=== PATIENT | female | born 1950 | race Caucasian/White ===

== ENCOUNTER 2016-11-04 07:16 | Day surgery (SDC) | payer BC, OTHER ==
[2016-11-03 08:46] VITALS: BMI 42.3
[~2016-11-04 07:16] MED LIST: DEXAMETHASONE SOD PHOSPHATE 10 MG/ML 1 ML VIAL IV ONE; HEPARIN SODIUM,PORCINE 5,000 UNIT/ML 1 ML VIAL SQ ONE; LIDOCAINE 1% 20 ML VIAL (10MG/ML) FOR IV START INTRADERMA PRN; MIDAZOLAM 2 MG/2 ML VIAL IV PRN; ONDANSETRON 4 MG/2 ML VIAL IVP ONE; SCOPOLAMINE 1.5MG/72HR PATCH TRANSDERM ONE
[2016-11-04] MEDS ORDERED: HEPARIN SODIUM,PORCINE 5,000 UNIT/ML 1 ML VIAL SQ ONE (08:11)
[2016-11-04] MEDS: LACTATED RINGERS 1,000 ML IV ONE ×2 (08:41→09:01)
[2016-11-04] MEDS ORDERED: LIDOCAINE 1% 20 ML VIAL (10MG/ML) FOR IV START INTRADERMA ONE (08:42)
[2016-11-04] MEDS: VANCOMYCIN 1,750 MG in SODIUM CHLORIDE 0.9% 250 ML IVPB ONE ×2 (08:43→09:01)
[2016-11-04 08:57] LABS: Glucose,Whole Blood 107 mg/dL (75-99)
[2016-11-04] MEDS ORDERED: MIDAZOLAM 2 MG/2 ML VIAL ONE (09:04)
[2016-11-04] MEDS ORDERED: LABETALOL 5 MG/ML VIAL MDV ONE (09:04)
[2016-11-04] MEDS ORDERED: HYDROCORTISONE SUCCINATE 100 MG/2 ML VIAL ONE (09:04)
[2016-11-04] MEDS ORDERED: fentaNYL (PF) 50 MCG/ML 2 ML AMP ONE (09:04)
[2016-11-04] MEDS ORDERED: LIDOCAINE 1% INJ 10MG/ML (20 ML MDV) ONE (09:04)
[2016-11-04] MEDS ORDERED: NEOSTIGMINE 1 MG/ML 10 ML VIAL ONE (09:04)
[2016-11-04] MEDS ORDERED: SUCCINYLCHOLINE CHLORIDE 100 MG/5 ML SYR IV ONE (09:04)
[2016-11-04] MEDS ORDERED: PROPOFOL 10 MG/ML 20 ML VIAL IV ONE (09:04)
[2016-11-04] MEDS ORDERED: GLYCOPYRROLATE 0.2 MG/ML 2 ML VIAL ONE (09:04)
[2016-11-04] MEDS ORDERED: ROCURONIUM BROMIDE 10 MG/ML 10 ML VIAL IV ONE (09:04)
[2016-11-04 10:49] VITALS: TEMP 98.6
--- NOTE | 2016-11-04 10:55 | P.OP ---
Date of Procedure: 11/04/16 Postoperative Diagnosis: Same Procedure(s) Performed: Revision tissue right chest wall Anesthesia: CLIVE Surgeon: Heather Ramos Estimated Blood Loss (ml): 30 IV fluids (ml): 500 Pathology: other (Residual skin and subcutaneous tissue right chest wall) Condition: stable Disposition: PACU Indications for Procedure: Patient is status post skin sparing mastectomy of the right breast for breast carcinoma she subsequently developed an MRSA infection and have the implant removed. The patient has now had resolution of the infection does not wish to have reconstruction performed. She therefore wishes revision of the skin and subcutaneous tissue of the chest wall. Description of Procedure: Redundant skin tissue secondary to skin sparing mastectomy Patient developed infection, patient then chose not to have a repeat reconstruction and therefore revision of tissue chest wall is being done. Patient was taken to the operating room and following induction of general anesthesia the right chest was prepped and draped in a sterile fashion. An incision was made in the superior and inferior flap of the prior skin sparing mastectomy. The residual subcutaneous tissue was dissected free and the flaps were developed. Because this was developed superiorly and inferiorly. The residual subcutaneous tissue and skin were removed from the chest wall using electrocautery device as well as the LigaSure. After assured that hemostasis was attained the wound was well irrigated. Following this a Stew-Tariq drain was placed. The deep tissues were secured using a 3-0 Vicryl suture. The skin was closed using 4-0 Monocryl. Additionally Baltazar were placed in the skin. The reason for the baltazar were that if the patient should develop an infection so this could be intermittently removed without opening the entire incision. The incision length was approximately 27 cm. In the midportion of the incision was a cavity approximately 3 x 4 cm in size, this represented the area where the patient had experienced an MRSA infection. This patient was entirely removed with the specimen. Patient tolerated procedure in stable condition. All instrument and sponge counts were correct at the end of the case. A silver dressing was applied. The patient was wrapped using a Joy wrap.
--- NOTE | 2016-11-04 10:57 | P.DS ---
Providers Attending physician: Heather Ramos Primary care physician: Kari Del Castillo Plan - Discharge Summary New Discharge Prescriptions: HYDROcodone/APAP 5-325MG [[place] 5] 1 - 2 each PO Q4H PRN #20 tab PRN Reason: Pain Sulfamethox-Tmp 800-160Mg [Bactrim DS 800-160 mg] 1 tab PO Q12HR #14 tab Discharge Medication List Desvenlafaxine Succinate [Pristiq ER] 50 mg PO HS 03/06/16 [History] Ergocalciferol (Vitamin D2) [Vitamin D2] 50,000 unit PO MO 03/06/16 [History] Leflunomide [Arava] 20 mg PO HS 03/06/16 [History] Levothyroxine Sodium 100 mcg PO QAM 03/06/16 [History] Nebivolol HCl [Bystolic] 10 mg PO QAM 03/06/16 [History] Omeprazole [PriLOSEC] 20 mg PO HS 03/06/16 [History] Zolpidem [Ambien] 10 mg PO HS 03/06/16 [History] amLODIPine [Norvasc] 10 mg PO QAM 03/06/16 [History] Losartan [Cozaar] 25 mg PO DAILY 03/26/16 [History] Exemestane [Aromasin] 25 mg PO HS 05/25/16 [History] HYDROcodone/APAP 7.5-325MG [[place] 7.5-325] 1 tab PO Q4H PRN #30 tab 05/29/16 [Rx ] ALPRAZolam [Xanax] 0.5 mg PO DAILY PRN 11/03/16 [History] methylPREDNISolone Dose Pack [Medrol Dose Pack] 1 tab PO DIRECTED 11/03/16 [ History] HYDROcodone/APAP 5-325MG [[place] 5] 1 - 2 each PO Q4H PRN #20 tab 11/04/16 [Rx] Sulfamethox-Tmp 800-160Mg [Bactrim DS 800-160 mg] 1 tab PO Q12HR #14 tab [Rx] Follow up Appointment(s)/Referral(s): Heather Ramos MD [STAFF PHYSICIAN] - 3 Days Activity/Diet/Wound Care/Special Instructions: Luis M Hamilton wrap in place at all times Teaching patient's family drain care Do not drive until seen by Dr. Srivastava Discharge Disposition: HOME SELF-CARE
[2016-11-04] MEDS: HYDROmorphone 1 MG/ML 1 ML SYRINGE IVP PRN ×2 (11:01→11:11)
[2016-11-04 11:16] VITALS: RESP 16
[2016-11-04] MEDS ORDERED: LACTATED RINGERS 1,000 ML IV ONE (11:23)
[2016-11-04] MEDS ORDERED: HYDROcodone/APAP 5-325MG 1 EACH TAB PO ONE (12:02)
[2016-11-04 12:21] VITALS: BP 150/75; PULSE 69
== END 2016-11-04 12:36 | disposition home or self-care (01) ==
LOC: OR 07:16
PROVIDERS: ATTEND Surgery
DX: L98.7 Excessive and redundant skin and subcutaneous tissue (principal); Z90.11 Acquired absence of right breast and nipple; Z86.14 Personal history of Methicillin resistant Staphylococcus aureus infection; Z85.3 Personal history of malignant neoplasm of breast; N60.11 Diffuse cystic mastopathy of right breast; N64.1 Fat necrosis of breast; N60.81 Other benign mammary dysplasias of right breast; N60.21 Fibroadenosis of right breast; N60.91 Unspecified benign mammary dysplasia of right breast; G47.33 Obstructive sleep apnea (adult) (pediatric); I10 Essential (primary) hypertension; I38 Endocarditis, valve unspecified; I48.91 Unspecified atrial fibrillation; E03.9 Hypothyroidism, unspecified; E21.3 Hyperparathyroidism, unspecified; K21.9 Gastro-esophageal reflux disease without esophagitis; M06.9 Rheumatoid arthritis, unspecified; Z79.1 Long term (current) use of non-steroidal anti-inflammatories (NSAID); Z79.891 Long term (current) use of opiate analgesic; Z79.899 Other long term (current) drug therapy; Z88.8 Allergy status to other drugs, medicaments and biological substances
CPT/HCPCS: 88305; 15839; J2250; J3370; J1644; J1100; J2710; J1720; J2405; J2001; J3010; J1170; J0330; J2704

== ENCOUNTER → 2017-02-23 | Outpatient (CLI) | payer BC ==
--- NOTE | 2017-02-23 15:56 | BD ---
EXAMINATION TYPE: MG DEXA axial skeleton, MG DEXA appendicular skeleton. DATE OF EXAM: 02/23/2017 3:41 PM COMPARISON: 09.04.2003 CLINICAL HISTORY: E21.0 HYPERPARATHYROIDISM Height: 65 Weight: 280 FRAX RISK QUESTIONS: Alcohol (3 or more units per day): NO Family History (Parent hip fracture): NO Glucocorticoids (More than 3mos): YES (Ex: prednisone, prednisolone, methylprednisolone, dexamethasone, and hydrocortisone). History of Fracture in Adulthood: NO Secondary Osteoporosis: NO 1. Type 1 Diabetes: NO 2. Hyperthyroidism: NO 3. Menopause before 45: NO 4. Malnutrition: NO 5. Chronic liver disease: NO Rheumatoid Arthritis: YES Current Tobacco Use: NO RISK FACTORS HISTORY OF: Surgery to Spine...HERNIATED DISC AND SHAVING OF BONE SPURS..TO LUMBAR SPINE When: 2010 Family History of Osteoporosis: NONE KNOWN Smoke tobacco: NO Drink Alcohol: NO Active: NO Diet low in dairy products/other sources of calcium: NO Postmenopausal woman: AT ABOUT 52 Adrenal Insufficiency: NO MEDICATIONS: Prednisone or other steroids: PREDNISONE How Lon MOS Thyroid Medications: YES Which medication: SYNTHROID How Lon + YRS Additional Medications: VIT D AND CALCIUM, BP MEDS, ARMIDEX, PRYSTIC, DIABETIC MEDS, ARAVA, ACTEMRA Additional History: DIABETIC, RT BREAST CANCER, WITH MASTECTOMY, HYPERPARATHYROIDISM, RA EXAM MEASUREMENTS: Bone mineral densitometry was performed using the [employer] T[employer]ycle System. Bone mineral density as measured about the Lumbar spine is: NO SPINE SCANNED....HX OF SURGICAL PROCEDURE 2010....BONE SPURS SHAVED AND HERNIATED DISCS REPAIRED. .. Bone mineral density about the R hip (g/cm2): 1.066 Bone mineral density about the L hip (g/cm2): 1.085 T Score values are as follows: -----R Neck: -0.4 -----L Neck: -0.4 -----R Total: 0.5 -----L Total: 0.6 Bone mineral density has: Decreased -4.4% since study of: 09.04.2003 Bone mineral density about the L Wrist (g/cm2): 0.538 T Score values are as follows: -----Dist. R+U: -1.4 -----Prox. R+U: -1.7 -----Radius total: -2.3 Bone mineral density IS FIRST SCAN OF HER FOREARM....ORDERED PER HER PHYSICIAN IMPRESSION: Osteopenia (T Score between -2.5 and -1 as noted by T score values There is slightly increased risk of fracture and the patient may be considered for treatment. Re-Screen 2-5 years. FOR HER LT WRIST NOTE: T-SCORE=SD OF THE YOUNG ADULT MEAN.
== END | disposition home or self-care (01) ==
LOC: RADBDWWP 13:52
PROVIDERS: ATTEND Internal Medicine Rheumatology
DX: M85.80 Other specified disorders of bone density and structure, unspecified site (principal); E21.0 Primary hyperparathyroidism
CPT/HCPCS: 77080; 77081

== ENCOUNTER → 2017-02-23 | Outpatient (CLI) | payer BC ==
--- NOTE | 2017-02-23 14:49 | MM ---
Reason for exam: history of breast cancer, mastectomy. Last mammogram was performed 1 year and 1 month ago. History: Patient is postmenopausal, has history of breast cancer at age 65, and has history of endometrial cancer at age 29. Mastectomy of the right breast, April 01, 2016. Malignant MG pre op needle loc RT of the right breast, March 11, 2016. Malignant MG stereo VAD BX RT of the right breast, February 26, 2016. Excisional biopsy of the right breast, 2000. Benign cyst aspiration of both breasts. Took estrogen for 1 year 2 months. Took progesterone for 1 year 2 months. Physical Findings: Nurse did not find any significant physical abnormalities on exam. MG 3D Diag Mammo W/Cad LT CC and MLO view(s) were taken of the left breast. Prior study comparison: February 04, 2016, right breast MG 3d work up w/cad RT. January 29, 2016, bilateral MG 3d screening mammo w/cad. The breast tissue is heterogeneously dense. This may lower the sensitivity of mammography. Benign calcifications. There is no discrete abnormality. No significant new findings when compared with previous films. These results were verbally communicated with the patient and result sheet given to the patient on 02/23/17. ASSESSMENT: Benign, BI-RAD 2 RECOMMENDATION: Follow-up diagnostic mammogram of the left breast in 1 year.
== END | disposition home or self-care (01) ==
LOC: RADMAMWWP 13:48
PROVIDERS: ATTEND Internal Medicine Rheumatology
DX: R92.8 Other abnormal and inconclusive findings on diagnostic imaging of breast (principal)
CPT/HCPCS: G0206; G0279

== ENCOUNTER → 2017-04-01 | Outpatient (CLI) | payer BC ==
[2017-04-01 15:50] VITALS: PULSE 67; RESP 16; TEMP 98.4; BMI 45.2
[2017-04-01 16:23] VITALS: BP 179/79
[2017-04-01 17:00] LABS: EKG EKG PERFORMED
[2017-04-01 17:14] LABS: CH 30.8; CHCM 31.9; HCT 47.6 % (34.0-46.0); HDW 2.28; HGB 15.1 gm/dL (11.4-16.0); MCH 30.7 pg (25.0-35.0); MCHC 31.7 g/dL (31.0-37.0); Mean Platelet Volume 8.1; RBC 4.91 m/uL (3.80-5.40); RDW 15.5 % (11.5-15.5); WBC 6.9 k/uL (3.8-10.6)
[2017-04-01 17:30] LABS: ALT 65 U/L (9-52); AST 35 U/L (14-36); Alkaline Phosphatase 74 U/L (38-126); Anion Gap 10 mmol/L; Blood Urea Nitrogen 23 mg/dL (7-17); Calcium 10.6 mg/dL (8.4-10.2); Carbon Dioxide 28 mmol/L (22-30); Chloride 108 mmol/L (98-107); Cholesterol 212 mg/dL (<200); Glucose 91 mg/dL (74-99); HDL Cholesterol 51 mg/dL (40-60); Iron 133 ug/dL (37-170); Non-African American GFR(MDRD) >60 (>60 ml/min/1.73 sqM); Potassium 4.9 mmol/L (3.5-5.1); Sodium 146 mmol/L (137-145); Total Bilirubin 0.4 mg/dL (0.2-1.3); Total Protein 6.9 g/dL (6.3-8.2); Triglycerides 253 mg/dL (<150)
[2017-04-01 17:40] LABS: Total Iron Binding Capacity 341 ug/dL (265-497)
[2017-04-01 18:34] LABS: Vitamin B12 329 pg/mL (239-931)
[2017-04-01 20:40] LABS: Hemoglobin A1C 6.7 % (4.2-6.1)
== END | disposition home or self-care (01) ==
LOC: BARWHC3 14:05
PROVIDERS: ATTEND Surgery Plastic and Reconstructive Surgery
DX: Z01.818 Encounter for other preprocedural examination (principal); E66.01 Morbid (severe) obesity due to excess calories; Z68.42 Body mass index [BMI] 45.0-49.9, adult; E89.1 Postprocedural hypoinsulinemia; D50.9 Iron deficiency anemia, unspecified; E44.0 Moderate protein-calorie malnutrition; E55.9 Vitamin D deficiency, unspecified; Z68.41 Body mass index [BMI] 40.0-44.9, adult; E11.9 Type 2 diabetes mellitus without complications; I11.9 Hypertensive heart disease without heart failure; G47.30 Sleep apnea, unspecified
CPT/HCPCS: 36415; 80053; 80061; 82306; 82607; 82728; 82746; 83036; 83540; 83550; 84425; 84443; 85027; 93005; 99201

== ENCOUNTER 2017-04-29 06:57 | Day surgery (SDC) | payer BC ==
[2017-04-28 08:28] VITALS: BMI 44.6
[~2017-04-29 06:57] MED LIST changes: -DEXAMETHASONE SOD PHOSPHATE 10 MG/ML 1 ML VIAL IV ONE; -HEPARIN SODIUM,PORCINE 5,000 UNIT/ML 1 ML VIAL SQ ONE; +LACTATED RINGERS 1,000 ML IV SCH; -LIDOCAINE 1% 20 ML VIAL (10MG/ML) FOR IV START INTRADERMA PRN; -MIDAZOLAM 2 MG/2 ML VIAL IV PRN; -ONDANSETRON 4 MG/2 ML VIAL IVP ONE; -SCOPOLAMINE 1.5MG/72HR PATCH TRANSDERM ONE
--- NOTE | 2017-04-29 07:33 | P.GSHP ---
History of Present Illness H&P Date: 04/29/17 CHIEF COMPLAINT: GERD and colon screen HISTORY OF PRESENT ILLNESS: The patient is a 66-year-old female who presents reports gastroesophageal reflux disease and need for colon screen. Upper and lower endoscopy were offered for further evaluation and management. PAST MEDICAL HISTORY: Please see list. PAST SURGICAL HISTORY: Please see list. MEDICATIONS: Please see list. ALLERGIES: Please see list. SOCIAL HISTORY: No illicit drug use FAMILY HISTORY: No reports of Crohn disease or ulcerative colitis. REVIEW OF ORGAN SYSTEMS: CONSTITUTIONAL: No reports of fevers or chills. GI: Denies any blood in stools or constipation. PHYSICAL EXAM: VITAL SIGNS: Stable GENERAL: Well-developed pleasant in no acute distress. HEENT: No scleral icterus. Extraocular movements grossly intact. Moist buccal mucosa. NECK: Supple without lymphadenopathy. CHEST: Unlabored respirations. Equal bilateral excursions. CARDIOVASCULAR: Regular rate and rhythm. Distal 2+ pulses. ABDOMEN: Soft, nondistended. MUSCULOSKELETAL: No clubbing, cyanosis, or edema. ASSESSMENT: 1. Gastroesophageal reflux disease 2. Colon screen. PLAN: 1. Recommend proceeding with an upper and lower endoscopy Past Medical History Past Medical History: Cancer, Diabetes Mellitus, GERD/Reflux, Hypertension, Rheumatoid Arthritis (RA), Sleep Apnea/CPAP/BIPAP, Thyroid Disorder Additional Past Medical History / Comment(s): HX OF ARRYTHMIA (led to ablation in 2004) , 1979; HX OF UTERINE/CERVICAL CA, January 2016: Rt. Breast Ca-March 2016- stage 0-MRSA, uses CPAP, DDD,steroid February 2017 History of Any Multi-Drug Resistant Organisms: MRSA Date of last positivie culture/infection: 05/26/16 MDRO Source:: breast right Past Surgical History: Back Surgery, Breast Surgery, Cardiac Ablation, Hysterectomy, Joint Replacement, Orthopedic Surgery Additional Past Surgical History / Comment(s): cardiac ablation 2004, RT KNEE REPLACEMENT X2, bilaterally BUNION SX, right breast lumpectomy February 2016, right breast mastectomy and sentinel node biopsy and tissue adobe layer March 2016.Tissue adobe layer removed 05/27/16, rt breast tissue removed Past Anesthesia/Blood Transfusion Reactions: Motion Sickness Additional Past Anesthesia/Blood Transfusion Reaction / Comment(s): no history of blood transfusions Smoking Status: Never smoker - Past Family History Mother Family Medical History: No Reported History Additional Family Medical History / Comment(s): at age 57 Father Family Medical History: Liver Disease Additional Family Medical History / Comment(s): cirrhosis, at age 58 Medications and Allergies Home Medications Medication Instructions Recorded Confirmed Type Desvenlafaxine Succinate [Pristiq 50 mg PO HS 03/06/16 04/28/17 History ER] Ergocalciferol (Vitamin D2) 50,000 unit PO MO 03/06/16 04/28/17 History [Vitamin D2] Leflunomide [Arava] 10 mg PO HS 03/06/16 04/28/17 History Levothyroxine Sodium 100 mcg PO QAM 03/06/16 04/28/17 History Nebivolol HCl [Bystolic] 10 mg PO QAM 03/06/16 04/28/17 History Omeprazole [PriLOSEC] 20 mg PO HS 03/06/16 04/28/17 History Zolpidem [Ambien] 10 mg PO HS 03/06/16 04/28/17 History amLODIPine [Norvasc] 10 mg PO QA 03/06/16 04/28/17 History Losartan [Cozaar] 25 mg PO QAM 03/26/16 04/28/17 History Exemestane [Aromasin] 25 mg PO HS 05/25/16 04/28/17 History ALPRAZolam [Xanax] 0.5 mg PO DAILY PRN 11/03/16 04/28/17 History Celecoxib [CeleBREX] 200 mg PO BID 04/01/17 04/28/17 History Cyclobenzaprine [Flexeril] 10 mg PO TID PRN 04/01/17 04/28/17 History metFORMIN HCL [Metformin HCl] 1,000 mg PO BID 04/01/17 04/28/17 History Tocilizumab [Actemra] 162 mg SQ TU 04/28/17 04/28/17 History Allergies Allergy/AdvReac Type Severity Reaction Status Date / Time povidone-iodine Allergy monahan skin Verified 04/28/17 08:13 [From Betadine] soap [From Betadine] Allergy monahan skin Verified 04/28/17 08:13
[2017-04-29 07:35] VITALS: RESP 14; TEMP 98.6
[2017-04-29 07:35] LABS: Glucose,Whole Blood 103 mg/dL (75-99)
[2017-04-29] MEDS ORDERED: MIDAZOLAM 2 MG/2 ML VIAL ONE (07:39)
[2017-04-29] MEDS ORDERED: fentaNYL (PF) 50 MCG/ML 2 ML AMP ONE (07:39)
[2017-04-29] MEDS ORDERED: PROPOFOL 10 MG/ML 20 ML VIAL IV ONE (07:39)
--- NOTE | 2017-04-29 07:53 | P.PCN ---
Date of Procedure: 04/29/17 Preoperative Diagnosis: Postoperative Diagnosis: Procedure(s) Performed: Implants: Indications for Procedure: Operative Findings: Description of Procedure: PREOPERATIVE DIAGNOSIS: Gastroesophageal reflux disease. Morbid obesity. POSTOPERATIVE DIAGNOSIS: Morbid obesity. Gastritis. Gastroesophageal reflux disease. OPERATION: Esophagogastroduodenoscopy with biopsies along antrum. SURGEON: Myriam Sánchez MD ANESTHESIA: MAC. INDICATIONS: The patient is a 66-year-old female who presents with a history of reflux disease. Benefits and risks of the procedure were described. Informed consent was obtained. DESCRIPTION: The patient was brought into the endoscopy suite and laid in the left lateral decubitus position. An Olympus gastroscope was passed along the posterior oropharynx down to the distal esophagus where the squamocolumnar junction was encountered at 40 cm from the incisors. The stomach was entered and no bile reflux was found. Additional findings are listed below. Biopsies with cold forceps were obtained of the antrum. The first through third portion of the duodenum was examined and unremarkable. Retroflexion of the scope confirmed Hill grade 3 lower esophageal valve. The squamocolumnar junction demostrated LA grade A erosive esophagitis. writing hiatal herniaThe stomach was desufflated. The patient tolerated the procedure well. FINDINGS: Squamocolumnar junction 40 cm from the incisors. Diaphragmatic hiatus at 40 cm. Hill grade 3 lower esophageal valve. LA grade A erosive esophagitis. No active duodenitis. Chronic gastritis, superficial. RECOMMENDATIONS: Continue medical therapy. Further recommendations pending results of pathology report. Upper endoscopy as needed. Will benefit from antireflux surgical procedure
--- NOTE | 2017-04-29 08:09 | P.PCN ---
Date of Procedure: 04/29/17 Preoperative Diagnosis: Postoperative Diagnosis: Procedure(s) Performed: Implants: Indications for Procedure: Operative Findings: Description of Procedure: PREOPERATIVE DIAGNOSIS: Colonoscopy screening, initial. POSTOPERATIVE DIAGNOSIS: Colonoscopy screening, initial. Diverticulosis, scattered. OPERATION: Colonoscopy to the ileocecal valve and appendiceal orifice. SURGEON: Myriam Sánchez MD. ANESTHESIA: MAC. INDICATIONS: The patient is a 66-year-old female who presents for her first colonoscopy screening. Benefits and risks were described and informed consent was obtained. DESCRIPTION OF PROCEDURE: The patient had undergone Gatorade, MiraLAX and Dulcolax prep. She had been brought into the operating room and laid in the left lateral decubitus position. After adequate intravenous sedation, the rectum was examined with 2% lidocaine jelly. No external hemorrhoids were encountered. The rectal tone was within normal limits. No lesions were palpated in the rectal vault. An Olympus colonoscope was advanced to the ascending colon. Abdominal wall pressure was performed to advance the scope as distally as possible. The patient had a moderately long redundant colon prohibiting complete view of the ileocecal valve base of the cecum. The prep was excellent with clear visualization of the mucosal folds. The scope was removed with visualization of each mucosal fold. Few scattered diverticulosis was encountered. No colonic polyps were found. No evidence of focal colitis was found. Retroflexion of the scope demonstrated grade 1 internal hemorrhoids without active bleeding or inflammation. The colon was desufflated. The patient had tolerated the procedure well. Withdrawal time was over 6 minutes. FINDINGS: Internal hemorrhoids, grade 1 No external prolapsed hemorrhoids. No arteriovenous malformations. No adenomatous polyps. No focal colitis. Visualization to the ascending colon. RECOMMENDATIONS: Lower endoscopy in 3 (2019) to 5 years with an extended length colonoscope. Plan - Discharge Summary New Discharge Prescriptions: No Action amLODIPine [Norvasc] 10 mg PO QAM Zolpidem [Ambien] 10 mg PO HS Omeprazole [PriLOSEC] 20 mg PO HS Nebivolol HCl [Bystolic] 10 mg PO QAM Levothyroxine Sodium 100 mcg PO QAM Leflunomide [Arava] 10 mg PO HS Ergocalciferol (Vitamin D2) [Vitamin D2] 50,000 unit PO MO Desvenlafaxine Succinate [Pristiq ER] 50 mg PO HS Losartan [Cozaar] 25 mg PO QAM Exemestane [Aromasin] 25 mg PO HS HYDROcodone/APAP 7.5-325MG [[place] 7.5-325] 1 tab PO Q4H PRN #30 tab PRN Reason: Pain ALPRAZolam [Xanax] 0.5 mg PO DAILY PRN PRN Reason: Anxiety metFORMIN HCL [Metformin HCl] 1,000 mg PO BID Cyclobenzaprine [Flexeril] 10 mg PO TID PRN PRN Reason: Pain Celecoxib [CeleBREX] 200 mg PO BID Tocilizumab [Actemra] 162 mg SQ TU Discharge Medication List Desvenlafaxine Succinate [Pristiq ER] 50 mg PO HS 03/06/16 [History] Ergocalciferol (Vitamin D2) [Vitamin D2] 50,000 unit PO MO 03/06/16 [History] Leflunomide [Arava] 10 mg PO HS 03/06/16 [History] Levothyroxine Sodium 100 mcg PO QAM 03/06/16 [History] Nebivolol HCl [Bystolic] 10 mg PO QAM 03/06/16 [History] Omeprazole [PriLOSEC] 20 mg PO HS 03/06/16 [History] Zolpidem [Ambien] 10 mg PO HS 03/06/16 [History] amLODIPine [Norvasc] 10 mg PO QAM 03/06/16 [History] Losartan [Cozaar] 25 mg PO QAM 03/26/16 [History] Exemestane [Aromasin] 25 mg PO HS 05/25/16 [History] HYDROcodone/APAP 7.5-325MG [[place] 7.5-325] 1 tab PO Q4H PRN #30 tab 05/29/16 [Rx ] ALPRAZolam [Xanax] 0.5 mg PO DAILY PRN 11/03/16 [History] Celecoxib [CeleBREX] 200 mg PO BID 04/01/17 [History] Cyclobenzaprine [Flexeril] 10 mg PO TID PRN 04/01/17 [History] metFORMIN HCL [Metformin HCl] 1,000 mg PO BID 04/01/17 [History] Tocilizumab [Actemra] 162 mg SQ TU 04/28/17 [History] Follow up Appointment(s)/Referral(s): Myriam Sánchez MD [STAFF PHYSICIAN] - 05/20/17 (Bariatric center) Patient Instructions/Handouts: Gastroesophageal Reflux Disease (DC) Discharge Disposition: HOME SELF-CARE
[2017-04-29 08:34] VITALS: BP 139/70; PULSE 78
== END 2017-04-29 08:54 | disposition home or self-care (01) ==
LOC: ORWHC2ENDO 06:57
PROVIDERS: ATTEND Surgery Plastic and Reconstructive Surgery
DX: Z12.11 Encounter for screening for malignant neoplasm of colon (principal); K29.50 Unspecified chronic gastritis without bleeding; K22.10 Ulcer of esophagus without bleeding; K57.30 Diverticulosis of large intestine without perforation or abscess without bleeding; K64.0 First degree hemorrhoids; Q43.8 Other specified congenital malformations of intestine; E66.01 Morbid (severe) obesity due to excess calories; Z68.41 Body mass index [BMI] 40.0-44.9, adult; E11.9 Type 2 diabetes mellitus without complications; Z79.84 Long term (current) use of oral hypoglycemic drugs; K21.9 Gastro-esophageal reflux disease without esophagitis; I10 Essential (primary) hypertension; E07.9 Disorder of thyroid, unspecified; M06.9 Rheumatoid arthritis, unspecified; F41.9 Anxiety disorder, unspecified; G47.30 Sleep apnea, unspecified; Z99.89 Dependence on other enabling machines and devices; Z85.41 Personal history of malignant neoplasm of cervix uteri; F32.9 Major depressive disorder, single episode, unspecified; Z79.811 Long term (current) use of aromatase inhibitors; Z79.891 Long term (current) use of opiate analgesic; Z79.899 Other long term (current) drug therapy
CPT/HCPCS: 88305; 88342; 43239; J2250; J3010; J2704; G0121; 45378

== ENCOUNTER → 2017-05-20 | Outpatient (CLI) | payer BC ==
[2017-05-20 15:32] LABS: Calcium 10.3 mg/dL (8.4-10.2); Potassium 4.4 mmol/L (3.5-5.1); Total Bilirubin 0.5 mg/dL (0.2-1.3)
[2017-05-20 19:11] LABS: Hemoglobin A1C 5.9 % (4.2-6.1)
== END | disposition home or self-care (01) ==
LOC: LABWHC1 14:43
PROVIDERS: ATTEND Internal Medicine Endocrinology, Diabetes & Metabolism
DX: E21.0 Primary hyperparathyroidism (principal); E11.65 Type 2 diabetes mellitus with hyperglycemia
CPT/HCPCS: 36415; 80053; 82306; 83036; 83970

== ENCOUNTER → 2017-05-20 | Outpatient (CLI) | payer BC ==
[2017-05-20 16:44] VITALS: BP 144/80; PULSE 61; RESP 18; TEMP 98.5; BMI 44.4
--- NOTE | 2017-06-22 19:51 | P.PN ---
Progress Note - Text DATE OF CONSULTATION: 05/20/2017 CHIEF COMPLAINT: Bariatric evaluation. HISTORY OF PRESENT ILLNESS: The patient is a 66-year-old female who initially presented in March 2017. At that time, she weighed 283 pounds. Today she comes in weighing 275 pounds. She has lost 8 pounds. She completed an upper endoscopy findings consistent with a Hill grade 3 lower esophageal valve but hiatal hernia. No reports of H. pylori gastritis. Separately, at her height of 5 foot 6.75, her ideal body weight is 154 pounds. Her body mass index was 44.8. Her BMI is now down to 43.5. She is 121 pounds overweight. She has developed diabetes type 2, hypertension, obstructive sleep apnea including bilateral knee pain, hip pain, and back pain from osteoarthritis including requiring injections of the joint. She is evaluating for a sleeve gastrectomy. PAST MEDICAL HISTORY: 1. Diabetes type 2, non-insulin dependent. 2. Gastroesophageal reflux disease. 3. Morbid obesity. 4. Osteoarthritis of the bilateral hips. 5. Osteoarthritis of the bilateral knees. 6. Hypertensive heart disease. 7. Obstructive sleep apnea. 8. Osteoarthritis of the lower back. 9. Hypothyroidism. 10. History of cardiac arrhythmia. 11. History of breast cancer. 12. History of uterine cancer. 13. Rheumatoid arthritis. 14. History of MRSA infection. 15. Motion sickness. 16. Anxiety. PAST SURGICAL HISTORY: 1. Cardiac ablation. 2. Right knee replacement x 2. 3. Bilateral bunionectomy. 4. Right breast lumpectomy. 5. Right breast mastectomy with breast implant. HOME MEDICATIONS: 1. Metformin. 2. Norvasc. 3. Ambien. 4. Omeprazole. 5. Bystolic. 6. Cozaar. 7. Levothyroxine. 8. Arava. 9. [place]. 10. Aromasin. 11. Vitamin D. 12. Pristiq. 13. Flexeril. 14. Celebrex. 15. Xanax. ALLERGIES: 1. Iodine. SOCIAL HISTORY: No active tobacco use. FAMILY HISTORY: Denies any DVTs, pulmonary embolisms in her family. Denies any ulcerative colitis disease or Crohn's. She does have a family history of morbid obesity. REVIEW OF ORGAN SYSTEMS: CONSTITUTIONAL: Separately, at her height of 5 foot 6.75, her ideal body weight is 154 pounds. Today she comes in weighing 275 pounds. Her highest weight is 283 pounds. She is 121 pounds overweight. She lost 8 pounds. HEENT: Denies any active troubles with vision or hearing. ENDOCRINE: Has diabetes and hypothyroidism. She has elevated calcium. CARDIOVASCULAR: No reports of palpitations or heart attacks or chest pain. Has history of arrhythmia. She is on 3 different medications for her blood pressure. RESPIRATORY: Has sleep apnea. No pneumonia. GI: Denies any bright red blood per rectum, diarrhea or constipation. Has intermittent heartburn. No recent colonoscopy. : Has hysterectomy. No recent UTI. MUSCULOSKELETAL: Has osteoarthritis of the knees and lower back. She sees Dr. Davis for her rheumatoid arthritis. NEURO: No reports of headaches or seizure disorders. PSYCH: Has depression without suicidal ideation. Has anxiety. HEMATOLOGIC: Denies any abnormal bleeding or bruising. BREAST: History of breast cancer and right breast reconstruction. PHYSICAL EXAM: VITAL SIGNS: height 5 foot 6.5 inches, weight 275 pounds. BMI 43.5 Vital Signs 05/20/17 16:39 Temperature 98.5 F Pulse Rate 61 Respiratory 18 Rate Blood Pressure 144/80 GENERAL: Well-developed female in no acute distress. HEENT: No scleral icterus. Extraocular was grossly intact. No nasal drainage. NECK: Supple without lymphadenopathy. CHEST: Nonlabored respirations with equal bilateral excursions. CARDIOVASCULAR: Regular rate. Distal 2+ pulses. ABDOMEN: Obese, soft, nontender, nondistended. MUSCULOSKELETAL: No clubbing, cyanosis. No edema. Gross strength 5/5 distal lower extremities. NEURO: No focal or lateralizing signs. Cranial nerves 2 through 12 grossly within normal limits. PSYCH: Appropriate affect. Alert and oriented to person, place and time. PATHOLOGY: History of gastritis without H. pylori. LABS: Reviewed with elevated calcium, hemoglobin A1c 6.7. Elevated cholesterol. Elevated ALT. STUDIES: EGD demonstrates hiatal hernia. Colonoscopy consistent with diverticulosis. ASSESSMENT: 1. Morbid obesity due to excess calories. 2. Body mass index of 44.8 down to 43.5. 3. History of right breast cancer. 4. Family history of morbid obesity. 5. Diabetes type 2, non-insulin dependent. 6. Previous history of caridac arrhythmia. 7. Hypercholesterolemia. 8. Osteoarthritis of the lower back. 9. Osteoarthritis of the bilateral knees. 10. Obstructive sleep apnea. 11. Seasonal ALLERGIES. 12. Rheumatoid arthritis. 13. Hypothyroidism. 14. Hypertensive heart disease. 15. Gastroesophageal reflux disease. 16. History of uterine cancer. 17. Osteoarthritis of the bilateral hips. 18. History of MRSA infection. 19. Motion sickness. 20. Anxiety. 21. Elevated calcium. 22. Hypertriglyceridemia. 23. Diverticulosis. PLAN: 1. Recommend repeat colonoscopy in 3-5 years. 2. She is evaluating for sleeve gastrectomy. Risk of gastroesophageal reflux disease was described. 3. She has elevated calcium and would recommend evaluation of parathyroid hormone for secondary hyperparathyroidism. 4. She has elevated PTH level, may need parathyroidectomy prior to bariatric procedure. 5. Will need completion of bariatric profile.
== END | disposition home or self-care (01) ==
LOC: BARWHC3 15:00
PROVIDERS: ATTEND Surgery Plastic and Reconstructive Surgery
DX: Z48.815 Encounter for surgical aftercare following surgery on the digestive system (principal); E78.00 Pure hypercholesterolemia, unspecified; M47.816 Spondylosis without myelopathy or radiculopathy, lumbar region; G47.33 Obstructive sleep apnea (adult) (pediatric); J30.2 Other seasonal allergic rhinitis; M06.9 Rheumatoid arthritis, unspecified; E03.9 Hypothyroidism, unspecified; I11.9 Hypertensive heart disease without heart failure; K21.9 Gastro-esophageal reflux disease without esophagitis; M16.0 Bilateral primary osteoarthritis of hip; M17.0 Bilateral primary osteoarthritis of knee; F41.9 Anxiety disorder, unspecified; E83.52 Hypercalcemia; E78.1 Pure hyperglyceridemia; K57.30 Diverticulosis of large intestine without perforation or abscess without bleeding; E11.9 Type 2 diabetes mellitus without complications; E66.01 Morbid (severe) obesity due to excess calories; Z68.41 Body mass index [BMI] 40.0-44.9, adult; Z86.14 Personal history of Methicillin resistant Staphylococcus aureus infection; Z85.3 Personal history of malignant neoplasm of breast; Z85.42 Personal history of malignant neoplasm of other parts of uterus; Z79.899 Other long term (current) drug therapy; Z79.811 Long term (current) use of aromatase inhibitors; Z79.1 Long term (current) use of non-steroidal anti-inflammatories (NSAID); Z91.048 Other nonmedicinal substance allergy status; Z98.84 Bariatric surgery status
CPT/HCPCS: 99211

== ENCOUNTER → 2017-06-02 | Outpatient (CLI) | payer BC ==
--- NOTE | 2017-06-02 15:40 | US ---
EXAMINATION TYPE: US thyroid st tissue head/neck DATE OF EXAM: 06/02/2017 COMPARISON: NONE CLINICAL HISTORY: E21.0 Primary hyperparathyroidism. Pt on Synthroid x many years, abnormal labs GLAND SIZE: Right Lobe: 5.0 x 2.0 x 2.9 cm Overall Parenchyma: heterogenous Left Lobe: 4.5 x 2.1 x 1.9 cm Overall Parenchyma: heterogeneous Isthmus Thickness: 0.4 cm NODULES RIGHT: # of nodules measured on right: 1 1. 2.6 X 1.7 x 2.0 cm isoechoic solid nodule at the upper pole with well-defined margins; This nodu le is wider than tall and shows intranodular vascularity. Prior size: No prior LEFT: # of nodules measured on left: 1 1. 0.4 X 0.3 x 0.4 cm hypoechoic solid nodule at the mid pole with poorly defined margins; This no dule is wider than tall and shows no intranodular vascularity. Prior size: No prior ISTHMUS: # of nodules measured in the isthmus: 0 Bilateral neck scanned, no evidence of lymphadenopathy. Bilateral nodules with large nodule on right and sub-centimeter nodule on left. IMPRESSION: Nonspecific thyroid heterogeneity and nodularity. Correlate with thyroid function testing and physica l exam findings.
== END | disposition home or self-care (01) ==
LOC: RADUSWWP 15:03
PROVIDERS: ATTEND Internal Medicine Endocrinology, Diabetes & Metabolism
DX: E21.0 Primary hyperparathyroidism (principal)
CPT/HCPCS: 76536

== ENCOUNTER 2017-06-30 11:43 | Day surgery (SDC) | payer MEDICARE, BC ==
[2017-06-30 14:13] VITALS: RESP 14; TEMP 98.2
[2017-06-30 14:32] VITALS: BP 178/84; PULSE 60
--- NOTE | 2017-06-30 14:35 | US ---
ULTRASOUND GUIDED FNA THYROID BIOPSY: CLINICAL HISTORY: Right thyroid nodule FINDINGS: The procedure was explained to the patient. The risks, complications, benefits and alternatives were discussed and any questions were answered. Informed consent was obtained. Patient was placed supin e on the ultrasound table and prepped and draped in the usual sterile fashion. Utilizing a 25 gauge needle, five passes were made into the requested right thyroid nodule. Patient was stable throughout the procedure. Pathology is pending. All elements of maximal barrier technique were utilized. IMPRESSION: 1. Successful ultrasound guided FNA thyroid biopsy.
[2017-06-30 15:55] LABS: Glucose,Whole Blood 89 mg/dL (75-99)
== END 2017-06-30 14:23 | disposition home or self-care (01) ==
LOC: RADPROMAIN 11:43
PROVIDERS: ATTEND Internal Medicine Endocrinology, Diabetes & Metabolism
DX: E04.2 Nontoxic multinodular goiter (principal)
CPT/HCPCS: 10022; 76942; 88173; 88305

== ENCOUNTER → 2017-07-20 | Outpatient (CLI) | payer MEDICARE, BC ==
[2017-07-20 16:38] VITALS: BMI 45.1
== END | disposition home or self-care (01) ==
LOC: BARWHC3 08:28
PROVIDERS: ATTEND Surgery Plastic and Reconstructive Surgery
DX: Z71.3 Dietary counseling and surveillance (principal); E66.01 Morbid (severe) obesity due to excess calories; Z68.42 Body mass index [BMI] 45.0-49.9, adult
CPT/HCPCS: 97804

== ENCOUNTER → 2017-08-20 | Outpatient (CLI) | payer MEDICARE, BC ==
[2017-08-20 10:33] VITALS: BP 148/74; PULSE 59; RESP 16; TEMP 98.8; BMI 45.1
--- NOTE | 2017-10-19 17:13 | P.PN ---
Subjective Progress Note Date: 08/20/17 DATE OF SERVICE: 08/20/2017 CHIEF COMPLAINT: Bariatric assessment HISTORY OF PRESENT ILLNESS: The patient is a 67-year-old female who initially presented in March 2017. At that time, she weighed 283 pounds. Today she comes in weighing 279 pounds. She has lost 4 pounds. At her height of 5 foot 6.75, her ideal body weight is 154 pounds. Her body mass index was 45.8. Her BMI is now down to 45.2. She is 125 pounds overweight. She has developed diabetes type 2, hypertension, obstructive sleep apnea including bilateral knee pain, hip pain, and back pain from osteoarthritis including requiring injections of the joint. She has history of arthritis. She is off her medications. Since her last evaluation, she had a parathyroidectomy for elevated calcium level. As she is evaluating for sleeve gastrectomy, she has discontinued her omeprazole and is doing well. She now presents for evaluation for sleeve gastrectomy. PAST MEDICAL HISTORY: 1. Diabetes type 2, non-insulin dependent. 2. Gastroesophageal reflux disease. 3. Morbid obesity. 4. Osteoarthritis of the bilateral hips. 5. Osteoarthritis of the bilateral knees. 6. Hypertensive heart disease. 7. Obstructive sleep apnea. 8. Osteoarthritis of the lower back. 9. Hypothyroidism. 10. History of cardiac arrhythmia. 11. History of breast cancer. 12. History of uterine cancer. 13. Rheumatoid arthritis. 14. History of MRSA infection. 15. Motion sickness. 16. Anxiety. 17. Primary hyperparathyroidism. PAST SURGICAL HISTORY: 1. Cardiac ablation. 2. Right knee replacement x 2. 3. Bilateral bunionectomy. 4. Right breast lumpectomy. 5. Right breast mastectomy with breast implant. 6. Parathyroidectomy. HOME MEDICATIONS: 1. Metformin. 2. Norvasc. 3. Ambien. 4. Omeprazole. 5. Bystolic. 6. Cozaar. 7. Levothyroxine. 8. Arava. 9. [place]. 10. Aromasin. 11. Vitamin D. 12. Pristiq. 13. Flexeril. 14. Celebrex. 15. Xanax. ALLERGIES: 1. Iodine. SOCIAL HISTORY: No active tobacco use. FAMILY HISTORY: Denies any DVTs, pulmonary embolisms in her family. Denies any ulcerative colitis disease or Crohn's. She does have a family history of morbid obesity. REVIEW OF ORGAN SYSTEMS: CONSTITUTIONAL: Separately, at her height of 5 foot 6, her ideal body weight is 154 pounds. Today she comes in weighing 279 pounds. Her highest weight is 283 pounds. She is 121 pounds overweight. She lost 4 pounds. HEENT: Denies any active troubles with vision or hearing. ENDOCRINE: Has diabetes and hypothyroidism. She has history of hyperparathyroidism. She is status post parathyroidectomy. CARDIOVASCULAR: No reports of palpitations or heart attacks or chest pain. Has history of arrhythmia. She is on 3 different medications for her blood pressure. RESPIRATORY: Has sleep apnea. No pneumonia. GI: Denies any bright red blood per rectum, diarrhea or constipation. Has intermittent heartburn. No recent colonoscopy. : Has hysterectomy. No recent UTI. MUSCULOSKELETAL: Has osteoarthritis of the knees and lower back. She sees Dr. Davis for her rheumatoid arthritis. She is off rheumatoid arthritic medications. NEURO: No reports of headaches or seizure disorders. PSYCH: Has depression without suicidal ideation. Has anxiety. HEMATOLOGIC: Denies any abnormal bleeding or bruising. BREAST: History of breast cancer and right breast reconstruction. PHYSICAL EXAM: VITAL SIGNS: height 5 foot 6 inches, weight 279 pounds. BMI 45.2 Vital Signs Temp 98.8 F 08/20/17 11:21 Pulse 59 L 08/20/17 11:21 Resp 16 08/20/17 11:21 BP 148/74 08/20/17 11:21 Pulse Ox GENERAL: Well-developed female in no acute distress. HEENT: No scleral icterus. Extraocular was grossly intact. No nasal drainage. NECK: Supple without lymphadenopathy. CHEST: Nonlabored respirations with equal bilateral excursions. CARDIOVASCULAR: Regular rate. Distal 2+ pulses. ABDOMEN: Obese, soft, nontender, nondistended. MUSCULOSKELETAL: No clubbing, cyanosis. No edema. Gross strength 5/5 distal lower extremities. NEURO: No focal or lateralizing signs. Cranial nerves 2 through 12 grossly within normal limits. PSYCH: Appropriate affect. Alert and oriented to person, place and time. ASSESSMENT: 1. Morbid obesity due to excess calories. 2. Body mass index of 45.8 down to 45.2. 3. History of right breast cancer. 4. Family history of morbid obesity. 5. Diabetes type 2, non-insulin dependent. 6. Previous history of caridac arrhythmia. 7. Hypercholesterolemia. 8. Osteoarthritis of the lower back. 9. Osteoarthritis of the bilateral knees. 10. Obstructive sleep apnea. 11. Seasonal ALLERGIES. 12. Rheumatoid arthritis. 13. Hypothyroidism. 14. Hypertensive heart disease. 15. Gastroesophageal reflux disease. 16. History of uterine cancer. 17. Osteoarthritis of the bilateral hips. 18. History of MRSA infection. 19. Motion sickness. 20. Anxiety. 21. Elevated calcium. 22. Hypertriglyceridemia. 23. Diverticulosis. 24. Primary hyperparathyroidism. 25. Status post parathyroidectomy. PLAN: 1. Bariatric options between a band, sleeve and a Andressa-en-Y gastric bypass were reviewed in detail. She elected for a sleeve gastrectomy. 2. The [place] [facility] Data was also reviewed with benefits and risks as described. 3. An 8 page second-generation bariatric consent form was reviewed in detail including potential of bleeding, infection, leaks, adequate weight loss, nutritional deficiencies which she demonstrated understanding of the risks. 4. Recommend 2 week high-protein low caloric 800 kcal diet to address hepatomegaly. 5. Preoperative labs including compress metabolic panel and CBC with type and screen. 6. DVT prophylaxis per [place] [facility]. 7. Antibiotic prophylaxis. 8. Inpatient hospitalization anticipated for more than 2 nights. 9. All questions and concerns were addressed with the patient. 10. Recommend diet classes. Objective - Vital Signs Vital signs: Vital Signs Temp 98.8 F 08/20/17 10:05 Pulse 59 L 08/20/17 10:05 Resp 16 08/20/17 10:05 BP 148/74 08/20/17 10:05 Pulse Ox Intake & Output 08/19/17 08/20/17 08/20/17 18:59 06:59 18:59 Weight 127.006 kg
== END | disposition home or self-care (01) ==
LOC: BARWHC3 09:54
PROVIDERS: ATTEND Surgery Plastic and Reconstructive Surgery
DX: Z48.815 Encounter for surgical aftercare following surgery on the digestive system (principal); E66.01 Morbid (severe) obesity due to excess calories; E11.8 Type 2 diabetes mellitus with unspecified complications; E78.00 Pure hypercholesterolemia, unspecified; M47.816 Spondylosis without myelopathy or radiculopathy, lumbar region; M17.0 Bilateral primary osteoarthritis of knee; G47.33 Obstructive sleep apnea (adult) (pediatric); M06.9 Rheumatoid arthritis, unspecified; I11.9 Hypertensive heart disease without heart failure; K21.9 Gastro-esophageal reflux disease without esophagitis; M16.0 Bilateral primary osteoarthritis of hip; J30.2 Other seasonal allergic rhinitis; T75.3XXA Motion sickness, initial encounter; F41.9 Anxiety disorder, unspecified; E78.1 Pure hyperglyceridemia; K57.90 Diverticulosis of intestine, part unspecified, without perforation or abscess without bleeding; E21.3 Hyperparathyroidism, unspecified; E89.0 Postprocedural hypothyroidism; Z68.42 Body mass index [BMI] 45.0-49.9, adult; Z85.3 Personal history of malignant neoplasm of breast; Z86.79 Personal history of other diseases of the circulatory system; Z85.42 Personal history of malignant neoplasm of other parts of uterus; Z86.14 Personal history of Methicillin resistant Staphylococcus aureus infection; Z79.899 Other long term (current) drug therapy; Z79.811 Long term (current) use of aromatase inhibitors; Z79.1 Long term (current) use of non-steroidal anti-inflammatories (NSAID); Z91.048 Other nonmedicinal substance allergy status; Z98.84 Bariatric surgery status
CPT/HCPCS: 99211

== ENCOUNTER → 2017-08-31 | Outpatient (CLI) | payer MEDICARE, BC ==
[2017-08-31 12:22] LABS: Basophils # (A) 0.1 k/uL (0-0.2); Basophils % (A) 1 %; CH 30.4; CHCM 31.4; Eosinophils # (A) 0.2 k/uL (0-0.7); Eosinophils % (A) 4 %; HCT 48.5 % (34.0-46.0); HDW 2.26; Luc # (Auto) 0.09; Luc % (Auto) 1; Lymphocytes # (A) 1.6 k/uL (1.0-4.8); Lymphocytes % (A) 24 %; MCHC 30.8 g/dL (31.0-37.0); MCV 97.4 fL (80.0-100.0); Mean Platelet Volume 8.2; Monocytes # (A) 0.5 k/uL (0-1.0); Monocytes % (A) 8 %; Neutrophils # (A) 4.1 k/uL (1.3-7.7); Neutrophils % (A) 63 %; RBC 4.98 m/uL (3.80-5.40); RDW 14.2 % (11.5-15.5); WBC 6.5 k/uL (3.8-10.6); WBC (Perox) 6.65
[2017-08-31 13:10] LABS: ALT 60 U/L (9-52); AST 30 U/L (14-36); Alkaline Phosphatase 68 U/L (38-126); Anion Gap 9 mmol/L; Blood Urea Nitrogen 20 mg/dL (7-17); Calcium 10.2 mg/dL (8.4-10.2); Carbon Dioxide 27 mmol/L (22-30); Chloride 107 mmol/L (98-107); Glucose 90 mg/dL (74-99); Non-African American GFR(MDRD) >60 (>60 ml/min/1.73 sqM); Potassium 4.9 mmol/L (3.5-5.1); Sodium 143 mmol/L (137-145); Total Bilirubin 0.3 mg/dL (0.2-1.3)
[2017-08-31 15:41] LABS: EKG ALREADY PERFORMED
== END | disposition home or self-care (01) ==
LOC: LABPAT 11:32
PROVIDERS: ATTEND Surgery Plastic and Reconstructive Surgery
DX: Z01.812 Encounter for preprocedural laboratory examination (principal)
CPT/HCPCS: 36415; 80053; 85025; 93005

== ENCOUNTER → 2017-09-25 | Outpatient (CLI) | payer MEDICARE, BC ==
[2017-09-25 12:56] VITALS: BP 134/76; PULSE 67; TEMP 98; BMI 45.2
--- NOTE | 2017-11-16 06:01 | P.PN ---
Subjective Progress Note Date: 09/25/17 DATE OF SERVICE: 09/25/2017 CHIEF COMPLAINT: Follow-up sleeve gastrectomy. HISTORY OF PRESENT ILLNESS: The patient is a 67-year-old female who is status post sleeve gastrectomy 09/21/2017. Her previous weight was 283 pounds in March 2017. Today she comes in weighing 280 pounds. Total weight lost of 3 pounds. At her height of 5 foot 6, her ideal body weight is 154 pounds. Her body mass index was 45.8. Her BMI is now down to 45.3. No reports of vomiting or nausea. She is tolerating liquids. No reports of pain. No reports of dizziness upon standing. PHYSICAL EXAM: VITAL SIGNS: height 5 foot 6 inches, weight 280 pounds. BMI 45.3 Vital Signs Temp 98.0 F 09/25/17 12:48 Pulse 67 09/25/17 12:48 Resp BP 134/76 09/25/17 12:48 Pulse Ox GENERAL: Well-developed female in no acute distress. HEENT: No scleral icterus. Extraocular was grossly intact. No nasal drainage. NECK: Supple without lymphadenopathy. CHEST: Nonlabored respirations with equal bilateral excursions. CARDIOVASCULAR: Regular rate. Distal 2+ pulses. ABDOMEN: Obese, soft, nontender, nondistended. Incisions well approximated. No signs of infection or cellulitis. MUSCULOSKELETAL: No clubbing, cyanosis. No edema. Gross strength 5/5 distal lower extremities. NEURO: No focal or lateralizing signs. Cranial nerves 2 through 12 grossly within normal limits. PSYCH: Appropriate affect. Alert and oriented to person, place and time. ASSESSMENT: 1. Morbid obesity due to excess calories. 2. Body mass index of 45.8 down to 45.3. 3. Diabetes type 2, non-insulin dependent. 4. Hypertensive heart disease. 5. Status post sleeve gastrectomy. PLAN: 1. Medical reconciliation performed with discontinuation of all antihypertensive and diabetic medications. 2. May start protein shakes. Objective - Vital Signs Vital signs: Vital Signs Temp 98.0 F 09/25/17 12:48 Pulse 67 09/25/17 12:48 Resp BP 134/76 09/25/17 12:48 Pulse Ox Intake & Output 09/24/17 09/25/17 09/25/17 18:59 06:59 18:59 Weight 127.187 kg
== END | disposition home or self-care (01) ==
LOC: BARWHC3 12:08
PROVIDERS: ATTEND Surgery Plastic and Reconstructive Surgery
DX: Z48.815 Encounter for surgical aftercare following surgery on the digestive system (principal); E66.01 Morbid (severe) obesity due to excess calories; Z68.42 Body mass index [BMI] 45.0-49.9, adult; E11.9 Type 2 diabetes mellitus without complications; I11.9 Hypertensive heart disease without heart failure; Z98.84 Bariatric surgery status
CPT/HCPCS: 99211

== ENCOUNTER → 2017-10-28 | Outpatient (CLI) | payer MEDICARE, BC ==
[2017-10-28 13:50] VITALS: BP 141/69; PULSE 79; RESP 16; TEMP 99.2; BMI 39.1
[2017-10-28 15:12] LABS: HCT 44.8 % (34.0-46.0); Hypochromasia Moderate; MCH 29.7 pg (25.0-35.0); MCHC 30.5 g/dL (31.0-37.0); MCV 97.4 fL (80.0-100.0); Mean Platelet Volume 9.3; Platelet Count 246 k/uL (150-450); RDW 15.7 % (11.5-15.5); WBC 7.3 k/uL (3.8-10.6)
[2017-10-28 15:13] LABS: INR 1.1 (<1.2); Partial Thromboplastin Time 22.4 sec (22.0-30.0); Prothrombin Time 10.5 sec (9.0-12.0)
[2017-10-28 15:21] LABS: HGB 13.7 gm/dL (11.4-16.0)
[2017-10-28 15:23] LABS: ALT 57 U/L (9-52); AST 36 U/L (14-36); Albumin 4.4 g/dL (3.5-5.0); Alkaline Phosphatase 93 U/L (38-126); Anion Gap 14 mmol/L; Blood Urea Nitrogen 21 mg/dL (7-17); Calcium 10.3 mg/dL (8.4-10.2); Carbon Dioxide 27 mmol/L (22-30); Chloride 101 mmol/L (98-107); Glucose 87 mg/dL (74-99); Potassium 4.2 mmol/L (3.5-5.1); Sodium 142 mmol/L (137-145); Total Bilirubin 0.5 mg/dL (0.2-1.3); Total Protein 7.3 g/dL (6.3-8.2)
[2017-10-28 19:36] LABS: Folate, Serum 18.6 ng/mL
[2017-10-28 21:20] LABS: Parathyroid Hormone Intact 51.3 pg/mL (14.0-72.0)
[2017-10-29 03:47] LABS: Hemoglobin A1C 4.6 % (4.0-6.0)
--- NOTE | 2017-12-19 10:57 | P.PN ---
Subjective Progress Note Date: 10/28/17 DATE OF SERVICE: 10/28/2017 CHIEF COMPLAINT: Follow-up sleeve gastrectomy. HISTORY OF PRESENT ILLNESS: The patient is a 67-year-old female who is status post sleeve gastrectomy 09/21/2017. Her previous weight was 283 pounds in March 2017. Today she comes in weighing 242 pounds. Total weight lost of 41 pounds lifetime. She has lost 38 pounds since her last visit one month ago At her height of 5 foot 6, her ideal body weight is 154 pounds. Her body mass index was 45.8. Her BMI is now down to 39.2. No reports of vomiting or nausea. No reports of pain. She had required IV infusion within a week of her surgery. She still pending to restart her rheumatoid arthritic medications. Her blood sugars are doing well at 110. She reports occasional discomfort along the abdomen. Otherwise no new complaints. She is eager to start solid foods. PHYSICAL EXAM: VITAL SIGNS: height 5 foot 6 inches, weight 242 pounds. BMI 39.2 Vital Signs 10/28/17 13:34 Temperature 99.2 F Pulse Rate 79 Respiratory 16 Rate Blood Pressure 141/69 GENERAL: Well-developed female in no acute distress. HEENT: No scleral icterus. Extraocular was grossly intact. No nasal drainage. NECK: Supple without lymphadenopathy. CHEST: Nonlabored respirations with equal bilateral excursions. CARDIOVASCULAR: Regular rate. Distal 2+ pulses. ABDOMEN: Obese, soft, nontender, nondistended. No palpable incisional hernias. No peritonitis. All wounds completely granulated. No signs of infection. MUSCULOSKELETAL: No clubbing, cyanosis. No edema. Gross strength 5/5 distal lower extremities. NEURO: No focal or lateralizing signs. Cranial nerves 2 through 12 grossly within normal limits. PSYCH: Appropriate affect. Alert and oriented to person, place and time. ASSESSMENT: 1. Morbid obesity due to excess calories. 2. Body mass index of 45.8 down to 39.2. 3. Diabetes type 2, non-insulin dependent. 4. Hypertensive heart disease. 5. Status post sleeve gastrectomy. PLAN: 1. She may restart her arthritic medications. 2. Bariatric lab panel pending. 3. May start stage V of her bariatric diet. 4. May restart multivitamins. 5. Follow-up 3 months post op in December 2017. Laboratory Last Values WBC 7.3 k/uL (3.8-10.6) 10/28/17 14:29 RBC 4.60 m/uL (3.80-5.40) 10/28/17 14:29 Hgb 13.7 gm/dL (11.4-16.0) D 10/28/17 14:29 Hct 44.8 % (34.0-46.0) 10/28/17 14:29 MCV 97.4 fL (80.0-100.0) 10/28/17 14:29 MCH 29.7 pg (25.0-35.0) 10/28/17 14: MCHC 30.5 g/dL (31.0-37.0) L 10/28/17 14: RDW 15.7 % (11.5-15.5) H 10/28/17 14:29 Plt Count 246 k/uL (150-450) 10/28/17 14:29 Hypochromasia Moderate 10/28/17 14:29 PT 10.5 sec (9.0-12.0) 10/28/17 14:29 INR 1.1 (<1.2) 10/28/17 14:29 APTT 22.4 sec (22.0-30.0) 10/28/17 14:29 Sodium 142 mmol/L (137-145) 10/28/17 14:29 Potassium 4.2 mmol/L (3.5-5.1) 10/28/17 14:29 Chloride 101 mmol/L (98-107) 10/28/17 14:29 Carbon Dioxide 27 mmol/L (22-30) 10/28/17 14:29 Anion Gap 14 mmol/L 10/28/17 14:29 BUN 21 mg/dL (7-17) H 10/28/17 14:29 Creatinine 0.69 mg/dL (0.52-1.04) 10/28/17 14:29 Est GFR (MDRD) Af Amer >60 (>60 ml/min/1.73 sqM) 10/28/17 14:29 Est GFR (MDRD) Non-Af >60 (>60 ml/min/1.73 sqM) 10/28/17 14:29 Glucose 87 mg/dL (74-99) 10/28/17 14:[address] Glu mg/dL 85 10/28/17 14:29 Hemoglobin A1c 4.6 % (4.0-6.0) 10/28/17 14: Calcium 10.3 mg/dL (8.4-10.2) H 10/28/17 14:29 Iron 33 ug/dL (50-170) L 10/28/17 14: TIBC 275 ug/dL (228-460) 10/28/17 14: Iron Saturation 12.00 (12.00-45.00) 10/28/17 14: Ferritin 130.8 ng/mL (10.0-291.0) 10/28/17 14: Total Bilirubin 0.5 mg/dL (0.2-1.3) 10/28/17 14: AST 36 U/L (14-36) 10/28/17 14:29 ALT 57 U/L (9-52) H 10/28/17 14: Alkaline Phosphatase 93 U/L (38-126) 10/28/17 14:29 Total Protein 7.3 g/dL (6.3-8.2) 10/28/17 14: Albumin 4.4 g/dL (3.5-5.0) 10/28/17 14: Prealbumin 19.0 mg/dL (18.0-42.0) 10/28/17 14:29 Vitamin D 25-Hydroxy 51.9 ng/mL (30.0-100.0) 10/28/17 14: Folate 18.6 ng/mL 10/28/17 14: TSH 0.578 mIU/L (0.465-4.680) 10/28/17 14: PTH Intact 51.3 pg/mL (14.0-72.0) 10/28/17 14: Copper 1740 ug/L (810-1990) 10/28/17 14: Selenium 134 mcg/L (63-160) 10/28/17 14:29 Zinc 80 ug/dL (60-130) 10/28/17 14:29 Has low iron. May need iron replacement such as infusion include an oral supplement. Objective - Vital Signs Vital signs: Vital Signs Temp 99.2 F 10/28/17 13:34 Pulse 79 01/10/18 13:34 Resp 16 10/28/17 13:34 BP 141/69 10/28/17 13:34 Pulse Ox Intake & Output 10/27/17 10/28/17 10/28/17 18:59 06:59 18:59 Weight 109.939 kg - Labs CBC & Chem 7: 10/28/17 14:29 10/28/17 14:29
== END | disposition home or self-care (01) ==
LOC: BARWHC3 12:26
PROVIDERS: ATTEND Surgery Plastic and Reconstructive Surgery
DX: Z09 Encounter for follow-up examination after completed treatment for conditions other than malignant neoplasm (principal); E66.01 Morbid (severe) obesity due to excess calories; E11.9 Type 2 diabetes mellitus without complications; I11.9 Hypertensive heart disease without heart failure; Z98.84 Bariatric surgery status; Z98.890 Other specified postprocedural states; Z68.39 Body mass index [BMI] 39.0-39.9, adult
CPT/HCPCS: 84255; 84134; 80053; 82728; 82525; 82746; 83540; 83550; 84443; 84630; 85027; 85610; 85730; 82306; 83970; 83036; 97803; 36415; G0463; 99211

== ENCOUNTER → 2017-12-30 | Outpatient (CLI) | payer MEDICARE, BC ==
[2017-12-30 13:40] VITALS: BMI 34.5
[2017-12-30 13:42] LABS: ALT 58 U/L (9-52); AST 35 U/L (14-36); Albumin 4.3 g/dL (3.5-5.0); Alkaline Phosphatase 85 U/L (38-126); Anion Gap 9 mmol/L; Blood Urea Nitrogen 25 mg/dL (7-17); Calcium 9.9 mg/dL (8.4-10.2); Carbon Dioxide 27 mmol/L (22-30); Chloride 106 mmol/L (98-107); Cholesterol 170 mg/dL (<200); Glucose 89 mg/dL (74-99); HDL Cholesterol 41 mg/dL (40-60); LDL Cholesterol,Calculated 118 mg/dL (0-99); Magnesium 1.9 mg/dL (1.6-2.3); Phosphorus 3.5 mg/dL (2.5-4.5); Potassium 4.3 mmol/L (3.5-5.1); Sodium 142 mmol/L (137-145); Total Bilirubin 0.6 mg/dL (0.2-1.3); Total Protein 6.8 g/dL (6.3-8.2); Triglycerides 56 mg/dL (<150)
[2017-12-30 13:44] LABS: INR 1.2 (<1.2); Partial Thromboplastin Time 24.2 sec (22.0-30.0); Prothrombin Time 11.4 sec (9.0-12.0)
[2017-12-30 14:01] LABS: HCT 45.1 % (34.0-46.0); HGB 14.7 gm/dL (11.4-16.0); MCH 29.3 pg (25.0-35.0); MCHC 32.6 g/dL (31.0-37.0); Mean Platelet Volume 8.9; Platelet Count 160 k/uL (150-450); RBC 5.01 m/uL (3.80-5.40); RDW 15.7 % (11.5-15.5); WBC 6.2 k/uL (3.8-10.6)
[2017-12-30 14:27] VITALS: BP 169/86; PULSE 56; TEMP 98.6
[2017-12-30 19:19] LABS: Vitamin D 25 Hydroxy 63.3 ng/mL (30.0-100.0)
[2017-12-30 19:22] LABS: Parathyroid Hormone Intact 38.5 pg/mL (14.0-72.0)
[2017-12-30 19:39] LABS: Folate, Serum >24.0 ng/mL
[2017-12-30 23:07] LABS: Hemoglobin A1C 5.3 % (4.0-6.0)
[2017-12-31 16:20] LABS: Zinc, Serum 85 ug/dL (60-130)
[2018-01-01 00:54] LABS: Vitamin B1 65 ug/L (38-122)
[2018-01-01 08:42] LABS: Vitamin A 34 ug/dL (38-106)
== END | disposition home or self-care (01) ==
LOC: BARWHC3 12:26
PROVIDERS: ATTEND Surgery Plastic and Reconstructive Surgery
DX: E66.01 Morbid (severe) obesity due to excess calories (principal); E21.1 Secondary hyperparathyroidism, not elsewhere classified; E89.1 Postprocedural hypoinsulinemia; D50.9 Iron deficiency anemia, unspecified; E44.0 Moderate protein-calorie malnutrition; E55.9 Vitamin D deficiency, unspecified; K74.1 Hepatic sclerosis; N19 Unspecified kidney failure; K50.90 Crohn's disease, unspecified, without complications
CPT/HCPCS: 84255; 84134; 84425; 80061; 80053; 82607; 82728; 82525; 82746; 83540; 83550; 83735; 84100; 84443; 84590; 84630; 85027; 85610; 85730; 82306; 83970; 83036; 97803; 36415; G0463; 99211

== ENCOUNTER → 2018-03-01 | Outpatient (CLI) | payer MEDICARE, BC ==
--- NOTE | 2018-03-01 09:35 | MM ---
Reason for exam: additional evaluation requested from prior study. Last mammogram was performed 1 year ago. History: Patient is postmenopausal, has history of breast cancer at age 65, and has history of endometrial cancer at age 29. Mastectomy of the right breast, April 01, 2016. Malignant MG pre op needle loc RT of the right breast, March 11, 2016. Malignant MG stereo VAD BX RT of the right breast, February 26, 2016. Excisional biopsy of the right breast, 2000. Benign cyst aspiration of both breasts. Took estrogen for 1 year 2 months. Took progesterone for 1 year 2 months. Taking antineoplastic for 2 years. Physical Findings: Nurse did not find any significant physical abnormalities on exam. MG 3D Diag Mammo W/Cad LT CC and MLO view(s) were taken of the left breast. Prior study comparison: February 23, 2017, left breast MG 3d diag mammo w/cad LT. February 04, 2016, right breast MG 3d work up w/cad RT. No significant new findings when compared with previous films. These results were verbally communicated with the patient and result sheet given to the patient on 03/01/18. ASSESSMENT: Negative, BI-RAD 1 RECOMMENDATION: Follow-up diagnostic mammogram of the left breast in 1 year.
--- NOTE | 2018-03-01 09:36 | USB ---
Reason for exam: additional evaluation requested from prior study. History: Patient is postmenopausal, has history of breast cancer at age 65, and has history of endometrial cancer at age 29. Mastectomy of the right breast, April 01, 2016. Malignant MG pre op needle loc RT of the right breast, March 11, 2016. Malignant MG stereo VAD BX RT of the right breast, February 26, 2016. Excisional biopsy of the right breast, 2000. Benign cyst aspiration of both breasts. Took estrogen for 1 year 2 months. Took progesterone for 1 year 2 months. Taking antineoplastic for 2 years. US Breast LT Left complete breast ultrasound includes all four quadrants, the retroareolar region and axilla. Finding demonstrates no cystic or solid lesion seen. These results were verbally communicated with the patient and result sheet given to the patient on 03/01/18. ASSESSMENT: Negative, BI-RAD 1 RECOMMENDATION: Follow-up diagnostic mammogram of the left breast in 1 year. Manage patient on a clinical basis.
== END ==
LOC: RADMAMWWP 08:02
PROVIDERS: ATTEND Family Medicine
DX: N64.4 Mastodynia (principal); Z85.3 Personal history of malignant neoplasm of breast
CPT/HCPCS: 76641; G0279; 77061

== ENCOUNTER → 2018-03-31 | Outpatient (CLI) | payer MEDICARE, BC ==
[2018-03-31 14:05] VITALS: BP 147/78; PULSE 67; RESP 15; TEMP 99
--- NOTE | 2018-03-31 14:55 | P.PN ---
Subjective Progress Note Date: 03/31/18 DATE OF SERVICE: 03/31/2018 CHIEF COMPLAINT: Follow-up sleeve gastrectomy HISTORY OF PRESENT ILLNESS: Dawson Swanson is a 67-year-old female who is status post sleeve gastrectomy 09/21/2017. She is over 6 months postop. Her highest weight was 283 pounds. Today she comes in weighing 188 pounds from 214 pounds, 3 months ago. Total weight lost of 95 pounds lifetime. She has lost 26 pounds since her last visit 3 months ago. At her height of 5 foot 6, her ideal body weight is 154 pounds. Her body mass index was 45.8. Her BMI is now down to 30.3. Percent excess weight loss is 74%. She is gardening. She is finally under 200 pounds. No GERD. She denies abdominal pain. Her bowels are working. She is trying hamburger to eat. PAST MEDICAL HISTORY: 1. Diabetes type 2, non-insulin dependent. 2. Gastroesophageal reflux disease. 3. Morbid obesity, BMI 45.8, initial 4. Osteoarthritis of the bilateral hips. 5. Osteoarthritis of the bilateral knees. 6. Hypertensive heart disease. 7. Obstructive sleep apnea. 8. Osteoarthritis of the lower back. 9. Hypothyroidism. 10. History of cardiac arrhythmia. 11. History of breast cancer. 12. History of uterine cancer. 13. Rheumatoid arthritis. 14. History of MRSA infection. 15. Motion sickness. 16. Anxiety. 17. Primary hyperparathyroidism. 18. Depressive disorder PAST SURGICAL HISTORY: 1. Cardiac ablation. 2. Right knee replacement x 2. 3. Bilateral bunionectomy. 4. Right breast lumpectomy. 5. Right breast mastectomy with breast implant. 6. Parathyroidectomy. 7. Gastric bypass HOME MEDICATIONS: 1. Paxil 2. Ambien. 3. Levothyroxine. 4. Aromasin. 5. Omeprazole ALLERGIES: 1. Iodine. SOCIAL HISTORY: No active tobacco use. FAMILY HISTORY: Denies any DVTs, pulmonary embolisms in her family. Denies any ulcerative colitis disease or Crohn's. She does have a family history of morbid obesity. REVIEW OF ORGAN SYSTEMS: CONSTITUTIONAL: Her highest weight was 283 pounds. Today she comes in weighing 188 pounds. Total weight lost of 95 pounds lifetime. She has lost 26 pounds since her last visit 3 months ago. At her height of 5 foot 6, her ideal body weight is 154 pounds. Her body mass index was 45.9. Her BMI is now down to 30.3. Percent excess weight loss is 74%. HEENT: Denies any active troubles with vision or hearing. ENDOCRINE: Has hypothyroidism. She has history of hyperparathyroidism. She is status post parathyroidectomy. Diabetes is resolved. CARDIOVASCULAR: No reports of palpitations or heart attacks or chest pain. Has history of arrhythmia. She is on 3 different medications for her blood pressure now discontinued. RESPIRATORY: Has sleep apnea is resolved. No pneumonia. GI: Denies any bright red blood per rectum, diarrhea or constipation. Gastroesophageal reflux disease resolved. : Has hysterectomy. No recent UTI. MUSCULOSKELETAL: Has osteoarthritis of the knees and lower back. She sees Dr. Davis for her rheumatoid arthritis. She is back on rheumatoid arthritic medications. NEURO: No reports of headaches or seizure disorders. PSYCH: Has depression without suicidal ideation. Has anxiety now resolved. HEMATOLOGIC: Denies any abnormal bleeding or bruising. BREAST: History of breast cancer and right breast reconstruction. PHYSICAL EXAM: VITAL SIGNS: height 5 foot 6 inches, weight 188 pounds. BMI 30.3 Temp 99 F 03/31/18 13:50 Pulse 67 03/31/18 13:50 Resp 15 03/31/18 13:50 BP 147/78 03/31/18 13:50 Pulse Ox GENERAL: Well-developed female in no acute distress. HEENT: No scleral icterus. Extraocular was grossly intact. No nasal drainage. Rash over the right eye with previous history of MRSA. NECK: Supple without lymphadenopathy. CHEST: Nonlabored respirations with equal bilateral excursions. CARDIOVASCULAR: Regular rate. Distal 2+ pulses. ABDOMEN: Obese, soft, nontender, nondistended. No palpable incisional hernias. Moderate-sized pannus over 5 pounds with erythema. MUSCULOSKELETAL: No clubbing, cyanosis. No edema. Gross strength 5/5 distal lower extremities. NEURO: No focal or lateralizing signs. Cranial nerves 2 through 12 grossly within normal limits. PSYCH: Appropriate affect. Alert and oriented to person, place and time. SKIN: Well perfused. Good skin turgor. LABS: Vitamin A is low. Copper is low. PTH is normal. Calcium level is normal. ALT is elevated. LDL is elevated. ASSESSMENT: 1. Morbid obesity due to excess calories. 2. Body mass index of 45.8 down to 30.3. 3. Diabetes type 2, non-insulin dependent, resolved. 4. Hypertensive heart disease, resolved. 5. Status post sleeve gastrectomy. 6. History of breast cancer 7. Iron deficiency 8. Panniculitis 9. MRSA infection 10. Vitamin A deficiency 11. Copper deficiency PLAN: 1. She is doing well. 2. Recommend bariatric labs 3. Follow up at 9 months post-op. 4. Recommend to consolidate MVI to Alive ultrapotency. Laboratory Last Values WBC 5.1 k/uL (3.8-10.6) 03/31/18 15:59 RBC 4.43 m/uL (3.80-5.40) 03/31/18 15:59 Hgb 14.2 gm/dL (11.4-16.0) 03/31/18 15:59 Hct 42.3 % (34.0-46.0) 03/31/18 15:59 MCV 95.6 fL (80.0-100.0) 03/31/18 15:59 MCH 32.2 pg (25.0-35.0) 03/31/18 15:59 MCHC 33.7 g/dL (31.0-37.0) 03/31/18 15:59 RDW 14.2 % (11.5-15.5) 03/31/18 15:59 Plt Count 171 k/uL (150-450) 03/31/18 15:59 PT 11.0 sec (9.0-12.0) 03/31/18 15:59 INR 1.1 (<1.2) 03/31/18 15:59 APTT 22.4 sec (22.0-30.0) 03/31/18 15:59 Sodium 141 mmol/L (137-145) 03/31/18 15:59 Potassium 4.3 mmol/L (3.5-5.1) 03/31/18 15:59 Chloride 103 mmol/L (98-107) 03/31/18 15:59 Carbon Dioxide 27 mmol/L (22-30) 03/31/18 15:59 Anion Gap 11 mmol/L 03/31/18 15:59 BUN 26 mg/dL (7-17) H 03/31/18 15:59 Creatinine 0.71 mg/dL (0.52-1.04) 03/31/18 15:59 Est GFR (CKD-EPI)AfAm >90 (>60 ml/min/1.73 sqM) 03/31/18 15:59 Est GFR (CKD-EPI)NonAf >90 (>60 ml/min/1.73 sqM) 03/31/18 15:59 Glucose 80 mg/dL (74-99) 03/31/18 15:[address] Glu mg/dL 97 03/31/18 15:59 Hemoglobin A1c 5.0 % (4.0-6.0) 03/31/18 15:59 Calcium 9.8 mg/dL (8.4-10.2) 03/31/18 15:59 Phosphorus 4.7 mg/dL (2.5-4.5) H 03/31/18 15:59 Magnesium 1.8 mg/dL (1.6-2.3) 03/31/18 15:59 Iron 76 ug/dL (50-170) 03/31/18 15:59 TIBC 284 ug/dL (228-460) 03/31/18 15:59 Iron Saturation 26.76 (12.00-45.00) 03/31/18 15:59 Ferritin 103.7 ng/mL (10.0-291.0) 03/31/18 15:59 Total Bilirubin 0.6 mg/dL (0.2-1.3) 03/31/18 15:59 AST 36 U/L (14-36) 03/31/18 15:59 ALT 47 U/L (9-52) 03/31/18 15:59 Alkaline Phosphatase 73 U/L (38-126) 03/31/18 15:59 Total Protein 6.7 g/dL (6.3-8.2) 03/31/18 15:59 Albumin 4.5 g/dL (3.5-5.0) 03/31/18 15:59 Prealbumin 31.0 mg/dL (18.0-42.0) 03/31/18 15:59 Triglycerides 87 mg/dL (<150) 03/31/18 15:59 Cholesterol 188 mg/dL (<200) 03/31/18 15:59 LDL Cholesterol, Calc 115 mg/dL (0-99) H 03/31/18 15:59 HDL Cholesterol 56 mg/dL (40-60) 03/31/18 15:59 Vitamin A 56 ug/dL (38-106) 03/31/18 15:59 Vitamin B1 70 ug/L (38-122) 03/31/18 15:59 Vitamin B12 1387.0 pg/mL (200.0-944.0) H 03/31/18 15:59 Vitamin D 25-Hydroxy 73.5 ng/mL (30.0-100.0) 03/31/18 15:59 Folate >24.0 ng/mL 03/31/18 15:59 TSH 0.344 mIU/L (0.465-4.680) L 03/31/18 15:59 Copper 685 ug/L (810-1990) L 03/31/18 15:59 Selenium 116 mcg/L (63-160) 03/31/18 15:59 Zinc 94 ug/dL (60-130) 03/31/18 15:59 Her copper level is low TSH is suppressed Objective - Vital Signs Vital signs: Vital Signs Temp 99 F 03/31/18 13:50 Pulse 67 03/31/18 13:50 Resp 15 03/31/18 13:50 BP 147/78 03/31/18 13:50 Pulse Ox Intake & Output 03/30/18 03/31/18 03/31/18 18:59 06:59 18:59 Weight 85.275 kg - Labs CBC & Chem 7: 03/31/18 15:59 03/31/18 15:59
[2018-03-31 15:10] VITALS: BMI 29.4
[2018-03-31 16:50] LABS: HCT 42.3 % (34.0-46.0); HGB 14.2 gm/dL (11.4-16.0); MCH 32.2 pg (25.0-35.0); MCHC 33.7 g/dL (31.0-37.0); MCV 95.6 fL (80.0-100.0); Mean Platelet Volume 7.8; Platelet Count 171 k/uL (150-450); RBC 4.43 m/uL (3.80-5.40); RDW 14.2 % (11.5-15.5); WBC 5.1 k/uL (3.8-10.6)
[2018-03-31 16:56] LABS: INR 1.1 (<1.2); Partial Thromboplastin Time 22.4 sec (22.0-30.0)
[2018-03-31 17:02] LABS: ALT 47 U/L (9-52); AST 36 U/L (14-36); Albumin 4.5 g/dL (3.5-5.0); Alkaline Phosphatase 73 U/L (38-126); Anion Gap 11 mmol/L; Blood Urea Nitrogen 26 mg/dL (7-17); Calcium 9.8 mg/dL (8.4-10.2); Carbon Dioxide 27 mmol/L (22-30); Chloride 103 mmol/L (98-107); Cholesterol 188 mg/dL (<200); Glucose 80 mg/dL (74-99); HDL Cholesterol 56 mg/dL (40-60); LDL Cholesterol,Calculated 115 mg/dL (0-99); Magnesium 1.8 mg/dL (1.6-2.3); Phosphorus 4.7 mg/dL (2.5-4.5); Potassium 4.3 mmol/L (3.5-5.1); Sodium 141 mmol/L (137-145); Total Bilirubin 0.6 mg/dL (0.2-1.3); Total Protein 6.7 g/dL (6.3-8.2); Triglycerides 87 mg/dL (<150)
[2018-04-01 01:07] LABS: Iron Saturation 26.76 (12.00-45.00)
[2018-04-01 01:10] LABS: Parathyroid Hormone Intact 34.8 pg/mL (14.0-72.0)
[2018-04-01 01:13] LABS: Vitamin D 25 Hydroxy 73.5 ng/mL (30.0-100.0)
[2018-04-01 01:17] LABS: Folate, Serum >24.0 ng/mL
[2018-04-01 12:49] LABS: Zinc, Serum 94 ug/dL (60-130)
[2018-04-02 05:31] LABS: Vitamin A 56 ug/dL (38-106)
[2018-04-02 12:27] LABS: Vitamin B1 70 ug/L (38-122)
[2018-04-02 16:17] LABS: Selenium 116 mcg/L (63-160)
== END | disposition home or self-care (01) ==
LOC: BARWHC3 13:23
PROVIDERS: ATTEND Surgery Plastic and Reconstructive Surgery
DX: E66.01 Morbid (severe) obesity due to excess calories (principal); E21.1 Secondary hyperparathyroidism, not elsewhere classified; E89.1 Postprocedural hypoinsulinemia; D50.9 Iron deficiency anemia, unspecified; K90.9 Intestinal malabsorption, unspecified; E55.9 Vitamin D deficiency, unspecified; K76.9 Liver disease, unspecified; N19 Unspecified kidney failure; K50.90 Crohn's disease, unspecified, without complications; Z68.29 Body mass index [BMI] 29.0-29.9, adult
CPT/HCPCS: 84255; 84134; 84425; 80061; 80053; 82607; 82728; 82525; 82746; 83540; 83550; 83735; 84100; 84443; 84590; 84630; 85027; 85610; 85730; 82306; 83970; 83036; 97803; G0463; 99211

== ENCOUNTER → 2018-07-07 | Outpatient (CLI) | payer MEDICARE, BC ==
--- NOTE | 2018-07-07 14:03 | US ---
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 Follow up thyroid nodules, patient on thyroid meds GLAND SIZE: Right Lobe: 5.5 x 2.9 x 3.0 cm Overall Parenchyma: heterogenous Left Lobe: 4.8 x 2.3 x 1.7 cm Overall Parenchyma: heterogeneous Isthmus Thickness: 0.3 cm NODULES RIGHT: # of nodules measured on right: 1 1. 3.1 X 1.9 x 2.3 cm isoechoic solid nodule at the upper pole with well-defined margins. This nodu le is wider than tall and shows intranodular vascularity. This is enlarging from comparison. Prior size: 2.6 x 1.7 x 2.0 cm LEFT: # of nodules measured on left: 1 1. 0.5 X 0.3 x 0.4 cm hypoechoic mixed nodule at the mid pole with well-defined margins. This nodul e is wider than tall and shows no intranodular vascularity. Prior size: 0.4 x 0.3 x 0.4 cm ISTHMUS: # of nodules measured in the isthmus: 0 Bilateral neck scanned, no evidence of lymphadenopathy. Heterogeneous gland with enlarged right lobe, bilateral nodules described above. IMPRESSION: 1. Enlarging right lobe thyroid nodule.
== END | disposition home or self-care (01) ==
LOC: RADUSWWP 13:25
PROVIDERS: ATTEND Internal Medicine Endocrinology, Diabetes & Metabolism
DX: E04.1 Nontoxic single thyroid nodule (principal)
CPT/HCPCS: 76536

== ENCOUNTER → 2018-07-07 | Outpatient (CLI) | payer MEDICARE, BC ==
[2018-07-07 14:56] LABS: ALT 47 U/L (9-52); AST 40 U/L (14-36); Albumin 4.3 g/dL (3.5-5.0); Alkaline Phosphatase 64 U/L (38-126); Anion Gap 7 mmol/L; Blood Urea Nitrogen 25 mg/dL (7-17); Calcium 9.7 mg/dL (8.4-10.2); Carbon Dioxide 30 mmol/L (22-30); Chloride 105 mmol/L (98-107); Cholesterol 216 mg/dL (<200); Glucose 86 mg/dL (74-99); HDL Cholesterol 62 mg/dL (40-60); LDL Cholesterol,Calculated 137 mg/dL (0-99); Magnesium 1.8 mg/dL (1.6-2.3); Sodium 142 mmol/L (137-145); Total Bilirubin 0.7 mg/dL (0.2-1.3); Total Protein 6.8 g/dL (6.3-8.2); Triglycerides 85 mg/dL (<150)
[2018-07-07 15:01] LABS: HCT 43.5 % (34.0-46.0); HGB 14.1 gm/dL (11.4-16.0); MCHC 32.4 g/dL (31.0-37.0); MCV 95.7 fL (80.0-100.0); Mean Platelet Volume 7.9; Platelet Count 188 k/uL (150-450); RBC 4.55 m/uL (3.80-5.40); RDW 13.4 % (11.5-15.5); WBC 6.2 k/uL (3.8-10.6)
[2018-07-07 15:12] VITALS: BP 138/72; PULSE 55; RESP 16; TEMP 98.2; BMI 28.3
[2018-07-07 15:15] LABS: INR 1.1 (<1.2); Prothrombin Time 10.9 sec (9.0-12.0)
--- NOTE | 2018-07-07 15:38 | P.PN ---
Subjective Progress Note Date: 07/07/18 DATE OF SERVICE: 07/07/2018 CHIEF COMPLAINT: Follow-up sleeve gastrectomy HISTORY OF PRESENT ILLNESS: Dawson Swanson is a 67-year-old female who is status post sleeve gastrectomy 09/21/2017. She has lost over 100 pounds in 10 months. She is full of energy. No reports of gastroesophageal reflux disease. She has no abdominal pain. Her hair is thinning but her protein intake is adequate. Her highest weight was 283 pounds. Today she comes in weighing 175 pounds from 188 pounds, 3 months ago. Total weight lost of 108 pounds lifetime. She has lost 13 pounds since her last visit 3 months ago. At her height of 5 foot 6, her ideal body weight is 154 pounds. Her body mass index was 45.8. Her BMI is now down to 28.3. Percent excess weight loss is 84%. PHYSICAL EXAM: VITAL SIGNS: height 5 foot 6 inches, weight 175 pounds. BMI 28.3 Vital Signs Temp 98.2 F 07/07/18 15:10 Pulse 55 L 07/07/18 15:10 Resp 16 07/07/18 15:10 BP 138/72 07/07/18 15:10 Pulse Ox GENERAL: Well-developed female in no acute distress. HEENT: No scleral icterus. Extraocular was grossly intact. No nasal drainage. NECK: Supple without lymphadenopathy. CHEST: Nonlabored respirations with equal bilateral excursions. CARDIOVASCULAR: Regular rate. Distal 2+ pulses. ABDOMEN: Obese, soft, nontender, nondistended. No palpable incisional hernias. Moderate-sized pannus over 5 pounds with erythema. MUSCULOSKELETAL: No clubbing, cyanosis. No edema. Gross strength 5/5 distal lower extremities. NEURO: No focal or lateralizing signs. Cranial nerves 2 through 12 grossly within normal limits. PSYCH: Appropriate affect. Alert and oriented to person, place and time. SKIN: Well perfused. Good skin turgor. ASSESSMENT: 1. Morbid obesity due to excess calories. 2. Body mass index of 45.8 down to 28.3 3. Diabetes type 2, non-insulin dependent, resolved. 4. Hypertensive heart disease, resolved. 5. Status post sleeve gastrectomy. 6. History of breast cancer 7. Iron deficiency 8. Panniculitis 9. MRSA infection 10. 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 Iatrogenic hyperthyroidism PLAN: 1. She is doing very well. 2. Labs were reviewed. 3. Thyroid medication needs to be lowered for iatrogenic hyperthyroidism Laboratory Last Values WBC 6.2 k/uL (3.8-10.6) 07/07/18 14:10 RBC 4.55 m/uL (3.80-5.40) 07/07/18 14:10 Hgb 14.1 gm/dL (11.4-16.0) 07/07/18 14:10 Hct 43.5 % (34.0-46.0) 07/07/18 14:10 MCV 95.7 fL (80.0-100.0) 07/07/18 14:10 MCH 31.0 pg (25.0-35.0) 07/07/18 14:10 MCHC 32.4 g/dL (31.0-37.0) 07/07/18 14:10 RDW 13.4 % (11.5-15.5) 07/07/18 14:10 Plt Count 188 k/uL (150-450) 07/07/18 14:10 PT 10.9 sec (9.0-12.0) 07/07/18 14:10 INR 1.1 (<1.2) 07/07/18 14:10 APTT 21.8 sec (22.0-30.0) L 07/07/18 14:10 Sodium 142 mmol/L (137-145) 07/07/18 14:10 Potassium 5.0 mmol/L (3.5-5.1) 07/07/18 14:10 Chloride 105 mmol/L (98-107) 07/07/18 14:10 Carbon Dioxide 30 mmol/L (22-30) 07/07/18 14:10 Anion Gap 7 mmol/L 07/07/18 14:10 BUN 25 mg/dL (7-17) H 07/07/18 14:10 Creatinine 0.67 mg/dL (0.52-1.04) 07/07/18 14:10 Est GFR (CKD-EPI)AfAm >90 (>60 ml/min/1.73 sqM) 07/07/18 14:10 Est GFR (CKD-EPI)NonAf >90 (>60 ml/min/1.73 sqM) 07/07/18 14:10 Glucose 86 mg/dL (74-99) 07/07/18 14:[address] Glu mg/dL 105 07/07/18 14:10 Hemoglobin A1c 5.3 % (4.0-6.0) 07/07/18 14:10 Calcium 9.7 mg/dL (8.4-10.2) 07/07/18 14:10 Phosphorus 4.0 mg/dL (2.5-4.5) 07/07/18 14:10 Magnesium 1.8 mg/dL (1.6-2.3) 07/07/18 14:10 Iron 104 ug/dL (50-170) 07/07/18 14:10 TIBC 276 ug/dL (228-460) 07/07/18 14:10 Iron Saturation 37.68 (12.00-45.00) 07/07/18 14:10 Ferritin 116.1 ng/mL (10.0-291.0) 07/07/18 14:10 Total Bilirubin 0.7 mg/dL (0.2-1.3) 07/07/18 14:10 AST 40 U/L (14-36) H 07/07/18 14:10 ALT 47 U/L (9-52) 07/07/18 14:10 Alkaline Phosphatase 64 U/L (38-126) 07/07/18 14:10 Total Protein 6.8 g/dL (6.3-8.2) 07/07/18 14:10 Albumin 4.3 g/dL (3.5-5.0) 07/07/18 14:10 Prealbumin 30.0 mg/dL (18.0-42.0) 07/07/18 14:10 Triglycerides 85 mg/dL (<150) 07/07/18 14:10 Cholesterol 216 mg/dL (<200) H 07/07/18 14:10 LDL Cholesterol, Calc 137 mg/dL (0-99) H 07/07/18 14:10 HDL Cholesterol 62 mg/dL (40-60) H 07/07/18 14:10 Vitamin A 54 ug/dL (38-106) 07/07/18 14:10 Vitamin B1 73 ug/L (38-122) 07/07/18 14:10 Vitamin B12 1048.0 pg/mL (200.0-944.0) H 07/07/18 14:10 Vitamin D 25-Hydroxy 67.7 ng/mL (30.0-100.0) 07/07/18 14:10 Folate >24.0 ng/mL 07/07/18 14:10 TSH 0.175 mIU/L (0.465-4.680) L 07/07/18 14:10 PTH Intact 49.8 pg/mL (14.0-72.0) 07/07/18 14:10 Copper 715 ug/L (810-1990) L 07/07/18 14:10 Selenium 106 mcg/L (63-160) 07/07/18 14:10 Zinc 83 ug/dL (60-130) 07/07/18 14:10 Objective - Vital Signs Vital signs: Vital Signs Temp 98.2 F 07/07/18 15:10 Pulse 55 L 07/07/18 15:10 Resp 16 07/07/18 15:10 BP 138/72 07/07/18 15:10 Pulse Ox Intake & Output 07/06/18 07/07/18 07/07/18 18:59 06:59 18:59 Weight 79.549 kg - Labs CBC & Chem 7: 07/07/18 14:10 07/07/18 14:10 Labs: Abnormal Lab Results - Last 24 Hours (Table) 07/07/18 Range/Units 14:10 BUN 25 H (7-17) mg/dL AST 40 H (14-36) U/L Cholesterol 216 H (<200) mg/dL LDL Cholesterol, Calc 137 H (0-99) mg/dL HDL Cholesterol 62 H (40-60) mg/dL TSH 0.175 L (0.465-4.680) mIU/L
[2018-07-07 15:50] LABS: Partial Thromboplastin Time 21.8 sec (22.0-30.0)
[2018-07-07 18:47] LABS: Iron Saturation 37.68 (12.00-45.00)
[2018-07-07 18:55] LABS: Vitamin D 25 Hydroxy 67.7 ng/mL (30.0-100.0)
[2018-07-07 19:07] LABS: Folate, Serum >24.0 ng/mL
[2018-07-07 20:15] LABS: Parathyroid Hormone Intact 49.8 pg/mL (14.0-72.0)
[2018-07-07 22:54] LABS: Hemoglobin A1C 5.3 % (4.0-6.0)
[2018-07-08 15:06] LABS: Zinc, Serum 83 ug/dL (60-130)
[2018-07-09 07:13] LABS: Vitamin B1 73 ug/L (38-122)
[2018-07-09 17:54] LABS: Selenium 106 mcg/L (63-160)
[2018-07-13 13:50] LABS: Vitamin A 54 ug/dL (38-106)
== END ==
LOC: BARWHC3 13:47
PROVIDERS: ATTEND Surgery Plastic and Reconstructive Surgery
DX: Z09 Encounter for follow-up examination after completed treatment for conditions other than malignant neoplasm (principal); E66.01 Morbid (severe) obesity due to excess calories; D50.9 Iron deficiency anemia, unspecified; M79.3 Panniculitis, unspecified; A49.02 Methicillin resistant Staphylococcus aureus infection, unspecified site; E50.9 Vitamin A deficiency, unspecified; E61.0 Copper deficiency; E05.90 Thyrotoxicosis, unspecified without thyrotoxic crisis or storm; E21.1 Secondary hyperparathyroidism, not elsewhere classified; E89.1 Postprocedural hypoinsulinemia; K90.9 Intestinal malabsorption, unspecified; E55.9 Vitamin D deficiency, unspecified; K74.1 Hepatic sclerosis; N19 Unspecified kidney failure; K50.90 Crohn's disease, unspecified, without complications; Z98.84 Bariatric surgery status; Z68.28 Body mass index [BMI] 28.0-28.9, adult; Z85.3 Personal history of malignant neoplasm of breast
CPT/HCPCS: 84255; 84134; 84425; 80061; 80053; 82607; 82728; 82525; 82746; 83540; 83550; 83735; 84100; 84443; 84590; 84630; 85027; 85610; 85730; 82306; 83970; 83036; 97803; G0463; 76536; 99211

== ENCOUNTER → 2018-09-22 | Outpatient (CLI) | payer MEDICARE, BC ==
[2018-09-22 14:21] VITALS: BP 154/79; PULSE 62; TEMP 98.5; BMI 29.2
--- NOTE | 2018-09-22 14:25 | P.PN ---
Subjective Progress Note Date: 09/22/18 HPI: She reports much energy. She lost 100 pounds. She is 1 year out. No GERD. No reports of problems. She has increased her fiber. ABDOMEN: No infection A/P: 1. S/p sleeve gastrectomy - 1 year labs requested. 2. She has no issues. 3. Follow up in 1 year. Objective - Vital Signs Vital signs: Intake & Output 09/21/18 09/22/18 09/22/18 18:59 06:59 18:59 Weight 82.1 kg
[2018-09-22 15:46] LABS: HCT 45.8 % (34.0-46.0); HGB 14.8 gm/dL (11.4-16.0); MCH 31.3 pg (25.0-35.0); MCHC 32.3 g/dL (31.0-37.0); Mean Platelet Volume 7.2; Platelet Count 209 k/uL (150-450); RBC 4.72 m/uL (3.80-5.40); RDW 13.3 % (11.5-15.5); WBC 7.3 k/uL (3.8-10.6)
[2018-09-22 15:57] LABS: Partial Thromboplastin Time 23.9 sec (22.0-30.0); Prothrombin Time 10.7 sec (9.0-12.0)
[2018-09-22 18:57] LABS: Parathyroid Hormone Intact 39.5 pg/mL (14.0-72.0)
[2018-09-22 21:05] LABS: Albumin 4.6 g/dL (3.80-4.90); Albumin/Globulin Ratio 2.71 (1.20-2.10); Anion Gap 8.3 mmol/L (4.00-12.00); Calcium 9.4 mg/dL (8.7-10.3); Carbon Dioxide 25.7 mmol/L (21.6-31.8); Globulin 1.7 g/dL (2.1-3.7); Potassium 4.2 mmol/L (3.5-5.5); Total Bilirubin 0.6 mg/dL (0.3-1.2); Total Protein 6.3 g/dL (6.2-8.2)
[2018-09-22 21:06] LABS: LDL Cholesterol,Calculated 137.2 mg/dL (0.0-131.0); Magnesium 1.7 mg/dL (1.5-2.4); Phosphorus 3.8 mg/dL (2.4-5.1); VLDL Calculation 13.8 mg/dL (5.00-40.00)
[2018-09-22 21:24] LABS: Iron Saturation 30.87 (12.00-45.00)
[2018-09-22 21:33] LABS: Vitamin D 25 Hydroxy 65.8 ng/mL (30.0-100.0)
[2018-09-22 21:49] LABS: Folate, Serum >24.0 ng/mL
[2018-09-23 04:39] LABS: Hemoglobin A1C 5.1 % (4.0-6.0)
[2018-09-23 13:55] LABS: Zinc, Serum 103 ug/dL (60-130)
[2018-09-24 08:12] LABS: Vitamin B1 85 ug/L (38-122)
[2018-09-24 08:16] LABS: Vitamin A 63 ug/dL (38-106)
[2018-09-28 17:24] LABS: Selenium 149 mcg/L (63-160)
== END | disposition home or self-care (01) ==
LOC: BARWHC3 13:44
PROVIDERS: ATTEND Surgery Plastic and Reconstructive Surgery
DX: E66.01 Morbid (severe) obesity due to excess calories (principal); E21.1 Secondary hyperparathyroidism, not elsewhere classified; E89.1 Postprocedural hypoinsulinemia; D50.9 Iron deficiency anemia, unspecified; K90.9 Intestinal malabsorption, unspecified; E55.9 Vitamin D deficiency, unspecified; K76.9 Liver disease, unspecified; N19 Unspecified kidney failure; K50.90 Crohn's disease, unspecified, without complications; Z68.29 Body mass index [BMI] 29.0-29.9, adult; Z71.3 Dietary counseling and surveillance
CPT/HCPCS: 84255; 84134; 84425; 80061; 80053; 82607; 82728; 82525; 82746; 83540; 83550; 83735; 84100; 84443; 84590; 84630; 85027; 85610; 85730; 82306; 83970; 83036; 97803; 36415; G0463; 99211

== ENCOUNTER → 2019-02-24 | Outpatient (CLI) | payer MEDICARE, BC ==
--- NOTE | 2019-02-24 13:08 | BD ---
EXAMINATION TYPE: Axial Bone Density DATE OF EXAM: 02/24/2019 COMPARISON: 2017 CLINICAL HISTORY: Height: 66 inches Weight: 198 pounds FRAX RISK QUESTIONS: Alcohol (3 or more units per day): no Family History (Parent hip fracture): no Glucocorticoids (More than 3mos): no (Ex: prednisone, prednisolone, methylprednisolone, dexamethasone, and hydrocortisone). History of Fracture in Adulthood: no Secondary Osteoporosis: 1. Type 1 Diabetes: no 2. Hyperthyroidism: no 3. Menopause before 45: no 4. Malnutrition: no 5. Chronic liver disease: no Rheumatoid Arthritis: yes Current Tobacco Use: no RISK FACTORS HISTORY OF: Surgery to Spine: yes; herniated disc & shaving of bone spurs When: 2010 Family History of Osteoporosis: not that patient is aware of Active: yes Diet low in dairy products/other sources of calcium: at least one serving a day Postmenopausal woman: yes Take estrogen and/or progesterone medications: not now How long: Estrogen/Progesterone about one year Lost more than 2 inches in height since high school: no Frequent falls: no Poor Health: no, "moderate" health Hyperparathyroidism: yes Adrenal Insufficiency: no MEDICATIONS: Prednisone or other steroids: not now Thyroid Medications: yes Which medication: Synthroid How Long: over 8 years Osteoporosis Medications: no Additional Medications: Vitamin D; antineoplastic, Celebrex Additional History: Breast CA age 65, endometrial CA age 29, degenerative disc disease, hx of zoila juju fx superior endplate L4; Bariatric sleeve surgery & as a result is no longer diabetic) One of pa rathyroid glands was removed about 18 months ago EXAM MEASUREMENTS: Bone mineral densitometry was performed using the IMVU System. Bone mineral density not measured about the Lumbar spine because of previous surgery Bone mineral density about the R hip (g/cm2): 0.930 Bone mineral density about the L hip (g/cm2): 0.920 T Score values are as follows: -----R Neck: -0.8 -----L Neck: -0.9 -----R Total: -0.5 -----L Total: -0.4 Bone mineral density has: Decreased -11.4% since study of: 02/23/2017 Bone mineral density about the L Wrist (g/cm2): 0.495 T Score values are as follows: -----Dist. R+U: -3.1 -----Prox. R+U: -1.9 -----Radius total: -3.0 Bone mineral density has: Decreased -2.2% since study of: 02/23/2017 IMPRESSION: Osteoporosis (T Score less than -2.5). There is increased fracture risk and therapy is usually indicated based on age. Re-Screen 1-2 years. NOTE: T-SCORE=SD OF THE YOUNG ADULT MEAN.
== END | disposition home or self-care (01) ==
LOC: RADBDWWP 09:22
PROVIDERS: ATTEND Internal Medicine Hematology & Oncology
DX: M81.0 Age-related osteoporosis without current pathological fracture (principal)
CPT/HCPCS: 77080

== ENCOUNTER → 2019-02-24 | Outpatient (CLI) | payer MEDICARE, BC ==
[2019-02-24 17:33] LABS: Albumin 4.1 g/dL (3.80-4.90); Albumin/Globulin Ratio 2.41 (1.60-3.17); Anion Gap 4.9 mmol/L (4.00-12.00); Carbon Dioxide 29.1 mmol/L (21.6-31.8); Globulin 1.7 g/dL (1.6-3.3); Potassium 4.1 mmol/L (3.5-5.5); Total Bilirubin 0.7 mg/dL (0.2-1.2); Total Protein 5.8 g/dL (6.2-8.2)
== END | disposition home or self-care (01) ==
LOC: LABWHC1 09:33
PROVIDERS: ATTEND Internal Medicine Endocrinology, Diabetes & Metabolism
DX: E03.8 Other specified hypothyroidism (principal); E21.0 Primary hyperparathyroidism; E04.2 Nontoxic multinodular goiter
CPT/HCPCS: 36415; 80053; 83970; 84443

== ENCOUNTER → 2019-03-02 | Outpatient (CLI) | payer MEDICARE, BC ==
--- NOTE | 2019-03-03 08:56 | MM ---
Reason for exam: additional evaluation requested from prior study. Last mammogram was performed 1 year ago. History: Patient is postmenopausal, has history of breast cancer at age 65, and has history of endometrial cancer at age 29. Mastectomy of the right breast, April 01, 2016. Malignant MG pre op needle loc RT of the right breast, March 11, 2016. Malignant MG stereo VAD BX RT of the right breast, February 26, 2016. Excisional biopsy of the right breast, 2000. Benign cyst aspiration of both breasts. Took estrogen for 1 year 2 months. Took progesterone for 1 year 2 months. Taking antineoplastic for 2 years. Physical Findings: Nurse did not find any significant physical abnormalities on exam. MG 3D Diag Mammo W/Cad LT CC and MLO view(s) were taken of the left breast. Prior study comparison: March 01, 2018, left breast MG 3d diag mammo w/cad LT. February 23, 2017, left breast MG 3d diag mammo w/cad LT. The breast tissue is heterogeneously dense. This may lower the sensitivity of mammography. Benign calcifications in the left breast. No suspicious abnormality. Central far posterior asymmetry resolves on additional views. These results were verbally communicated with the patient and result sheet given to the patient on 03/02/19. ASSESSMENT: Benign, BI-RAD 2 RECOMMENDATION: Routine screening mammogram of the left breast in 1 year.
== END | disposition home or self-care (01) ==
LOC: RADMAMWWP 13:20
PROVIDERS: ATTEND Family Medicine
DX: Z08 Encounter for follow-up examination after completed treatment for malignant neoplasm (principal); Z85.3 Personal history of malignant neoplasm of breast
CPT/HCPCS: 77065; G0279; 77061

== ENCOUNTER → 2019-03-02 | Outpatient (CLI) | payer MEDICARE, BC ==
--- NOTE | 2019-03-02 15:14 | US ---
EXAMINATION TYPE: US thyroid st tissue head/neck DATE OF EXAM: 03/02/2019 COMPARISON: 07/07/2018 CLINICAL HISTORY: E04.2 NONTOXIC MNG. Goiter, follow up GLAND SIZE: Right Lobe: 4.7 x 3.1 x 3.5 cm Overall Parenchyma: heterogenous Left Lobe: 5.4 x 1.8 x 2.0 cm Overall Parenchyma: heterogeneous Isthmus Thickness: 0.3 cm NODULES RIGHT: # of nodules measured on right: 1 1. 2.4 X 1.6 x 2.5 cm isoechoic solid nodule at the upper pole with well-defined margins; . This n odule is wider than tall and shows intranodular vascularity. Prior size: 3.1 x 1.9 x 2.3 cm LEFT: # of nodules measured on left 1. 0.4 X 0.3 x 0.5 cm hypoechoic mixed nodule at the mid pole with well-defined margins; . This no dule is wider than tall and shows no intranodular vascularity. Prior size: 0.5 x 0.3 x 0.4 cm ISTHMUS: # of nodules measured in the isthmus: 0 Bilateral neck scanned, normal appearing lymph node left neck IMPRESSION: Similar-appearing multinodular goiter in comparison to exam of 06/27/2018 with the right th yroid nodule measuring smaller, likely due to technique, and stable size of the subcentimeter left th yroid nodule.
== END | disposition home or self-care (01) ==
LOC: RADUSWWP 13:22
PROVIDERS: ATTEND Internal Medicine Endocrinology, Diabetes & Metabolism
DX: E04.2 Nontoxic multinodular goiter (principal)
CPT/HCPCS: 76536

== ENCOUNTER → 2019-03-02 | Outpatient (CLI) | payer MEDICARE, BC ==
[2019-03-02 12:31] LABS: HCT 43.1 % (34.0-46.0); HGB 13.8 gm/dL (11.4-16.0); MCH 30.2 pg (25.0-35.0); MCV 94.4 fL (80.0-100.0); Mean Platelet Volume 7.4; Platelet Count 191 k/uL (150-450); RBC 4.56 m/uL (3.80-5.40); RDW 13.7 % (11.5-15.5); WBC 6.1 k/uL (3.8-10.6)
[2019-03-02 12:42] LABS: Partial Thromboplastin Time 23.1 sec (22.0-30.0); Prothrombin Time 10.7 sec (9.0-12.0)
[2019-03-02 19:08] LABS: Iron Saturation 43.38 (12.00-45.00)
[2019-03-02 19:17] LABS: Vitamin D 25 Hydroxy 28.9 ng/mL (30.0-100.0)
[2019-03-02 19:33] LABS: Folate, Serum >24.0 ng/mL
[2019-03-02 19:47] LABS: Albumin 4.2 g/dL (3.80-4.90); Albumin/Globulin Ratio 2.33 (1.60-3.17); Anion Gap 5.8 mmol/L (4.00-12.00); Calcium 9.2 mg/dL (8.7-10.3); Carbon Dioxide 27.2 mmol/L (21.6-31.8); Globulin 1.8 g/dL (1.6-3.3); LDL Cholesterol,Calculated 138.8 mg/dL (0.0-131.0); Magnesium 1.7 mg/dL (1.5-2.4); Phosphorus 3.7 mg/dL (2.4-5.1); Potassium 4.4 mmol/L (3.5-5.5); Total Bilirubin 0.7 mg/dL (0.3-1.2); VLDL Calculation 19.2 mg/dL (5.00-40.00)
[2019-03-02 20:31] LABS: Parathyroid Hormone Intact 56.9 pg/mL (14.0-72.0)
[2019-03-02 21:36] LABS: Hemoglobin A1C 5.5 % (4.0-6.0)
[2019-03-03 13:14] LABS: Zinc, Serum 75 ug/dL (60-130)
[2019-03-04 07:31] LABS: Vit B1(Thiamine) 72 ug/L (38-122)
[2019-03-04 08:04] LABS: Vitamin A 58 ug/dL (38-106)
[2019-03-05 12:42] LABS: Selenium 117 mcg/L (63-160)
== END | disposition home or self-care (01) ==
LOC: LABWHC1 11:41
PROVIDERS: ATTEND Surgery Plastic and Reconstructive Surgery
DX: E66.01 Morbid (severe) obesity due to excess calories (principal); E21.1 Secondary hyperparathyroidism, not elsewhere classified; E89.1 Postprocedural hypoinsulinemia; D50.9 Iron deficiency anemia, unspecified; E44.0 Moderate protein-calorie malnutrition; E55.9 Vitamin D deficiency, unspecified; K74.1 Hepatic sclerosis; N19 Unspecified kidney failure; K50.90 Crohn's disease, unspecified, without complications
CPT/HCPCS: 36415; 80053; 80061; 82306; 82525; 82607; 82728; 82746; 83036; 83540; 83550; 83735; 83970; 84100; 84134; 84255; 84425; 84443; 84590; 84630; 85027; 85610; 85730

== ENCOUNTER → 2023-06-17 | Day surgery (SDC) | payer MEDICARE, BC ==
[2023-06-15 14:15] VITALS: BMI 37.9
[~2023-06-17] MED LIST changes: +LIDOCAINE 1% (10MG/ML) FOR IV START INTRADERMA PRN; +LIDOCAINE 2% INJ 20 MG/ML (2 ML VIAL) ONE; +MIDAZOLAM 2 MG/2 ML VIAL ONE; +ONDANSETRON 4 MG/2 ML VIAL IVP ONE; +ONDANSETRON 4 MG/2 ML VIAL ONE; +PROPOFOL 10 MG/ML 20 ML VIAL IV ONE; +fentaNYL (PF) 50 MCG/ML 2 ML AMP ONE
--- NOTE | 2023-06-17 07:57 | P.GSHP ---
History of Present Illness H&P Date: 06/17/23 CHIEF COMPLAINT: GERD and colon screen HISTORY OF PRESENT ILLNESS: The patient is a 72-year-old female who presents with gastroesophageal reflux disease and need for colon screen. Upper and lower endoscopy were offered for further evaluation and management. PAST MEDICAL HISTORY: Please see list. PAST SURGICAL HISTORY: Please see list. MEDICATIONS: Please see list. ALLERGIES: Please see list. SOCIAL HISTORY: No illicit drug use FAMILY HISTORY: No reports of Crohn disease or ulcerative colitis. REVIEW OF ORGAN SYSTEMS: CONSTITUTIONAL: No reports of fevers or chills. GI: Denies any blood in stools or constipation. PHYSICAL EXAM: VITAL SIGNS: Stable GENERAL: Well-developed pleasant in no acute distress. HEENT: No scleral icterus. Extraocular movements grossly intact. Moist buccal mucosa. NECK: Supple without lymphadenopathy. CHEST: Unlabored respirations. Equal bilateral excursions. CARDIOVASCULAR: Regular rate and rhythm. Distal 2+ pulses. ABDOMEN: Soft, nondistended. MUSCULOSKELETAL: No clubbing, cyanosis, or edema. ASSESSMENT: 1. Gastroesophageal reflux disease 2. Colon screen. PLAN: 1. Recommend proceeding with an upper and lower endoscopy Past Medical History Past Medical History: Atrial Fibrillation, Cancer, Diabetes Mellitus, Hypertension, Rheumatoid Arthritis (RA), Sleep Apnea/CPAP/BIPAP, Thyroid Disorder Additional Past Medical History / Comment(s): HX OF ARRYTHMIA (led to ablation in 2004) , 1980-HX OF UTERINE/CERVICAL CA, Rt. Breast Ca-January 2016-stage 0, uses CPAP, DDD History of Any Multi-Drug Resistant Organisms: MRSA Date of last positivie culture/infection: 05/26/16 MDRO Source:: breast right knee Past Surgical History: Back Surgery, Bariatric Surgery, Breast Surgery, Cardiac Ablation, Hysterectomy, Joint Replacement, Orthopedic Surgery Additional Past Surgical History / Comment(s): cardiac ablation 2004, RT KNEE REPLACEMENT X2 - Staph Infection, bilaterally BUNION SX, right breast lumpectomy February 2016, right breast mastectomy and sentinel node biopsy and tissue environmental studies department chair March 2016.Tissue environmental studies department chair removed 05/27/16, rt breast tissue removed sleeve gastrectomy 09-21-17 Past Anesthesia/Blood Transfusion Reactions: Motion Sickness Additional Past Anesthesia/Blood Transfusion Reaction / Comment(s): no history of blood transfusions Smoking Status: Never smoker - Past Family History Mother Family Medical History: No Reported History Additional Family Medical History / Comment(s): at age 57 mva Father Family Medical History: Liver Disease Additional Family Medical History / Comment(s): cirrhosis, at age 58 Medications and Allergies Home Medications Medication Instructions Recorded Confirmed Type Nystatin 100,000 Unit/gm Powd 1 applic TOPICAL BID #60 powder 12/30/17 06/15/23 Rx [Mycostatin Powder] Levothyroxine Sodium [Synthroid] 200 mcg PO DAILY 03/31/18 06/15/23 History buPROPion XL [Wellbutrin Xl] 200 mg PO BID 03/31/18 06/15/23 History Apixaban [Eliquis] 5 mg PO BID 06/15/23 06/15/23 History Aspirin 81 mg PO DAILY 06/15/23 06/15/23 History Atorvastatin [Lipitor] 40 mg PO DAILY 06/15/23 06/15/23 History Chlorthalidone 25 mg PO DAILY 06/15/23 06/15/23 History DULoxetine HCL [Cymbalta] 60 mg PO DAILY 06/15/23 06/15/23 History Leflunomide [Arava] 20 mg PO DAILY 06/15/23 06/15/23 History Metoprolol Tartrate 25 mg PO BID 06/15/23 06/15/23 History Potassium Chloride ER [K-Dur 10] 20 meq PO DAILY 06/15/23 06/15/23 History amLODIPine [Norvasc] 10 mg PO DAILY 06/15/23 06/15/23 History busPIRone HCL [Buspar] 7.5 mg PO BID 06/15/23 06/15/23 History inFLIXimab [Remicade] 0 mg IVPB QMONTHLY 06/15/23 06/15/23 History metFORMIN HCL 500 mg PO BID 06/15/23 06/15/23 History traZODone HCL [Desyrel] 50 mg PO HS 06/15/23 06/15/23 History Allergies Allergy/AdvReac Type Severity Reaction Status Date / Time povidone-iodine Allergy monahan skin Verified 06/15/23 14:07 [From Betadine] soap [From Betadine] Allergy monahan skin Verified 06/15/23 14:07
[2023-06-17 08:15] VITALS: TEMP 97.5
[2023-06-17 09:43] VITALS: BP 119/75; PULSE 70; RESP 16
--- NOTE | 2023-06-17 10:01 | P.PCN ---
Date of Procedure: 06/17/23 Description of Procedure: PREOPERATIVE DIAGNOSIS: Colonoscopy screening. POSTOPERATIVE DIAGNOSIS: Diverticulosis, scattered. OPERATION: Colonoscopy to the hepatic flexure SURGEON: Myriam Sánchez MD. ANESTHESIA: MAC. INDICATIONS: The patient is a 72-year-old female who presents for colonoscopy screening. Last colonoscopy over 5 years ago. Benefits and risks were described and informed consent was obtained. DESCRIPTION OF PROCEDURE: The patient had undergone Sutab prep. The patient had been brought into the operating room and laid in the left lateral decubitus position. After adequate intravenous sedation, the rectum was examined with 2% lidocaine jelly. External hemorrhoids were encountered. The rectal tone was within normal limits. No lesions were palpated in the rectal vault. the colon was highly redundant requiring abdominal wall pressure. Despite pressure, scope advanced only to hepatic flexure. The prep was poor to fair with liquid stools. Scattered diverticulosis was encountered. Mucosal investigation limited up to the hepatic flexure were no colonic polyps were found. No evidence of focal colitis was found up to the hepatic flexure. Retroflexion of the scope demonstrated grade 2 internal hemorrhoids without active bleeding or inflammation. The colon was desufflated. The patient had tolerated the procedure well. Withdrawal time was over 6 minutes. FINDINGS: Aronchick preparation quality scale 3 (1-5) Endoscopic assessment limited to hepatic flexure. Internal hemorrhoids, grade 2 External prolapsed hemorrhoids, grade 2 No arteriovenous malformations. No adenomatous polyps. No focal colitis. RECOMMENDATIONS: Recommend barium enema for assessment of cecum including ascending colon Repeat colonoscopy in 3 years, 2025 Plan - Discharge Summary Discharge Rx Participant: No New Discharge Prescriptions: Continue Nystatin 100,000 Unit/gm Powd [Mycostatin Powder] 1 applic TOPICAL BID #60 powder Levothyroxine Sodium [Synthroid] 200 mcg PO DAILY buPROPion XL [Wellbutrin XL] 200 mg PO BID amLODIPine [Norvasc] 10 mg PO DAILY Leflunomide [Arava] 20 mg PO DAILY Apixaban [Eliquis] 5 mg PO BID traZODone HCL [Desyrel] 50 mg PO HS inFLIXimab [Remicade] 0 mg IVPB QMONTHLY busPIRone HCL [Buspar] 7.5 mg PO BID Potassium Chloride ER [K-Dur 10] 20 meq PO DAILY Metoprolol Tartrate 25 mg PO BID DULoxetine HCL [Cymbalta] 60 mg PO DAILY Chlorthalidone 25 mg PO DAILY Atorvastatin [Lipitor] 40 mg PO DAILY Aspirin 81 mg PO DAILY metFORMIN HCL 500 mg PO BID Discharge Medication List Nystatin 100,000 Unit/gm Powd [Mycostatin Powder] 1 applic TOPICAL BID #60 powder 12/30/17 [Rx] Levothyroxine Sodium [Synthroid] 200 mcg PO DAILY 03/31/18 [History] buPROPion XL [Wellbutrin XL] 200 mg PO BID 03/31/18 [History] Apixaban [Eliquis] 5 mg PO BID 06/15/23 [History] Aspirin 81 mg PO DAILY 06/15/23 [History] Atorvastatin [Lipitor] 40 mg PO DAILY 06/15/23 [History] Chlorthalidone 25 mg PO DAILY 06/15/23 [History] DULoxetine HCL [Cymbalta] 60 mg PO DAILY 06/15/23 [History] Leflunomide [Arava] 20 mg PO DAILY 06/15/23 [History] Metoprolol Tartrate 25 mg PO BID 06/15/23 [History] Potassium Chloride ER [K-Dur 10] 20 meq PO DAILY 06/15/23 [History] amLODIPine [Norvasc] 10 mg PO DAILY 06/15/23 [History] busPIRone HCL [Buspar] 7.5 mg PO BID 06/15/23 [History] inFLIXimab [Remicade] 0 mg IVPB QMONTHLY 06/15/23 [History] metFORMIN HCL 500 mg PO BID 06/15/23 [History] traZODone HCL [Desyrel] 50 mg PO HS 06/15/23 [History] [facility] [place] [facility] [place] [facility] Patient Instructions/Handouts: *Surgery [facility] - (Anesthesia) Discharge Instructions Outpatient Surgery, Diverticulosis Diet (GEN), Colonoscopy (DC), Upper Endoscopy (DC), Barium Enema (DC) Activity/Diet/Wound Care/Special Instructions: Colonoscopy 3 years, 2025 Discharge Disposition: HOME SELF-CARE
--- NOTE | 2023-06-17 10:03 | P.PCN ---
Date of Procedure: 06/17/23 Description of Procedure: PREOPERATIVE DIAGNOSIS: Gastroesophageal reflux disease. Status post sleeve gastrectomy. POSTOPERATIVE DIAGNOSIS: Gastroesophageal reflux disease. Status post sleeve gastrectomy. Diaphragmatic hiatal hernia without obstruction. Chronic superficial gastritis. OPERATION: Esophagogastroduodenoscopy with cold forceps biopsies along the antrum and duodenum SURGEON: Myriam Sánchez MD ANESTHESIA: MAC. INDICATIONS: The patient is a 72-year-old female who presents with a history of sleeve gastrectomy and gastroesophageal reflux disease. She is over 5 years out from her bariatric procedure. Benefits and risks of the procedure were described. Informed consent was obtained. DESCRIPTION: The patient was brought into the endoscopy suite and laid in the left lateral decubitus position. An Olympus gastroscope was passed along the posterior oropharynx down to the distal esophagus where the squamocolumnar junction was at 33 centimeters from the incisors remarkable for chronic erosive esophagitis, LA grade A without ulceration. The stomach was entered where she had a 4-cm hiatal hernia with a diaphragmatic hiatus found at 37 cm. The sleeve reservoir is within normal limits. Chronic gastritis was found along the antrum with cold biopsies obtained. The first through third portion of the duodenum was examined with biopsies obtained. The stomach was desufflated. The patient tolerated the procedure well. FINDINGS: No acute ulceration found along her sleeve. No corkscrewing sleeve gastrectomy. Squamocolumnar junction at 33 cm from the incisors. Diaphragmatic hiatus at 37 cm. Gastric sleeve reservoir within normal limits. Hiatal hernia 4 cm, fixed. LA grade A erosive esophagitis. Biopsies obtained duodenum Chronic gastritis. RECOMMENDATIONS: Upper endoscopy as needed. May benefit from antireflux operation. Continue with current therapy.
[2023-06-17 10:07] LABS: Glucose,Whole Blood 89 mg/dL (70-110)
[2023-06-17 10:11] LABS: Glucose,Whole Blood 88 mg/dL (70-110)
--- NOTE | 2023-06-17 12:52 | XR ---
EXAMINATION TYPE: XR abdomen 1V DATE OF EXAM: 06/17/2023 12:36 PM CLINICAL HISTORY: Incomplete colonoscopy TECHNIQUE: Supine abdominal view of the abdomen was obtained with 2 radiographs. COMPARISON: None. FINDINGS: Moderate amount of gas is demonstrated throughout the colon. No evidence for obstruction. P elvic phleboliths. Osteoarthritic changes of both hips with joint space narrowing, sclerosis, margina l spurring. Degenerative changes of the thoracolumbar spine. IMPRESSION: Moderate amount of gas present within the colon after colonoscopy. Barium enema deferred at this time and rescheduled for tomorrow.
== END | disposition home or self-care (01) ==
LOC: ORWHC2ENDO 07:19
PROVIDERS: ATTEND Surgery Plastic and Reconstructive Surgery
DX: Z12.11 Encounter for screening for malignant neoplasm of colon (principal); K21.00 Gastro-esophageal reflux disease with esophagitis, without bleeding; K29.50 Unspecified chronic gastritis without bleeding; I48.91 Unspecified atrial fibrillation; E11.9 Type 2 diabetes mellitus without complications; I10 Essential (primary) hypertension; G47.33 Obstructive sleep apnea (adult) (pediatric); K64.1 Second degree hemorrhoids; K64.8 Other hemorrhoids; E07.9 Disorder of thyroid, unspecified; M06.9 Rheumatoid arthritis, unspecified; Z86.14 Personal history of Methicillin resistant Staphylococcus aureus infection; Z79.899 Other long term (current) drug therapy; Z98.890 Other specified postprocedural states; Z90.710 Acquired absence of both cervix and uterus; Z79.82 Long term (current) use of aspirin; Z79.01 Long term (current) use of anticoagulants; Z79.84 Long term (current) use of oral hypoglycemic drugs; Z91.09 Other allergy status, other than to drugs and biological substances; Z88.8 Allergy status to other drugs, medicaments and biological substances; Z79.890 Hormone replacement therapy
CPT/HCPCS: 88305; 74018; 45378; 43239; J2250; J2405; J3010; J2704; J2001

== ENCOUNTER → 2023-06-18 | Outpatient (CLI) | payer MEDICARE, BC ==
--- NOTE | 2023-06-18 16:36 | FL ---
EXAMINATION TYPE: FL barium enema DATE OF EXAM: 06/18/2023 11:13 AM CLINICAL INDICATION:Female, 72 years old with history of INCOMPLETE COLONOSCOPY Z53.9; COMPARISON: Radiograph 06/17/2023 TECHNIQUE: The procedure was explained and patient history elicited. All patient questions were answ ered prior to beginning. Multiple spot fluoroscopic images of the colon were obtained after the recta l administration of liquid barium as the contrast agent. Multiple postprocedural overhead images, w ere obtained and reviewed. Fluoroscopic time: 2 minutes 50 seconds Fluoroscopic images: 0 Radiographs taken: 41 DAP: Not reported by machine [email or web address] FINDINGS: The rolled oats mill operator abdominal radiograph demonstrates a normal bowel gas pattern without dilated loo ps of small or large bowel. There is no evidence for organomegaly or pneumoperitoneum. No abnormal calcifications. The visualized osseous structures are intact. The colon demonstrates normal course and contour without evidence of focal stricture, internal fillin g defects. Few scattered colonic diverticula. Views of the cecum with manual compression are unremar kable. Postevacuation images are unremarkable. IMPRESSION: 1. No evidence for abnormal stricture or mass lesion within the sigmoid colon.\ 2. Scattered colonic diverticula.
== END | disposition home or self-care (01) ==
LOC: RADFLMAIN 09:46
PROVIDERS: ATTEND Surgery Plastic and Reconstructive Surgery
DX: K57.30 Diverticulosis of large intestine without perforation or abscess without bleeding (principal); Z53.9 Procedure and treatment not carried out, unspecified reason
CPT/HCPCS: 74270

== ENCOUNTER 2024-01-09 18:10 | Emergency (ER) | payer MEDICARE, BC ==
[2024-01-09 18:54] VITALS: TEMP 97.8
[2024-01-09 20:02] LABS: Basophils # (A) 0.1 k/uL (0-0.2); Basophils % (A) 0 %; Eosinophils # (A) 0.2 k/uL (0-0.7); Eosinophils % (A) 1 %; HGB 13.1 gm/dL (11.4-16.0); Lymphocytes # (A) 1.9 k/uL (1.0-4.8); Lymphocytes % (A) 12 %; MCH 31.2 pg (25.0-35.0); MCHC 32.8 g/dL (31.0-37.0); MCV 95.2 fL (80.0-100.0); Mean Platelet Volume 7.4; Monocytes # (A) 0.9 k/uL (0-1.0); Monocytes % (A) 6 %; Neutrophils # (A) 12.6 k/uL (1.3-7.7); Neutrophils % (A) 80 %; Platelet Count 431 k/uL (150-450); RDW 13.1 % (11.5-15.5); WBC 15.8 k/uL (3.8-10.6)
[2024-01-09 20:15] LABS: ALT 16 U/L (4-34); AST 24 U/L (14-36); African American GFR (CKD) 83 (>60 ml/min/1.73 sqM); Albumin 3.8 g/dL (3.5-5.0); Alkaline Phosphatase 103 U/L (38-126); Anion Gap 10 mmol/L; Blood Urea Nitrogen 27 mg/dL (7-17); Carbon Dioxide 26 mmol/L (22-30); Chloride 99 mmol/L (98-107); Glucose 116 mg/dL (74-99); Non-African American GFR(CKD) 72 (>60 ml/min/1.73 sqM); Potassium 3.5 mmol/L (3.5-5.1); Sodium 135 mmol/L (137-145); Total Bilirubin 0.9 mg/dL (0.2-1.3); Total Protein 6.8 g/dL (6.3-8.2)
[2024-01-09 21:15] LABS: Amorphous Sediment,Urine Rare /hpf; Appearance,Urine Clear (Clear); Bacteria,Urine Rare /hpf; Bilirubin,Urine Negative (Negative); Blood,Urine Negative (Negative); Budding Yeast,Urine Rare /hpf; Color,Urine Yellow; Glucose,Urine (UA) Negative (Negative); Hyaline Casts,Urine 13 /lpf (0-2); Ketones,Urine Negative (Negative); Leukocyte Esterase,Urine Trace (Negative); Mucus,Urine Rare /hpf; Nitrite,Urine Negative (Negative); PH, Urine 6.5 (5.0-8.0); Protein,Urine Trace (Negative); RBC,Urine 2 /hpf (0-5); Specific Gravity,Urine 1.029 (1.001-1.035); Squamous Epithelial Cell,Urine 3 /hpf (0-4); WBC,Urine 5 /hpf (0-5)
--- NOTE | 2024-01-09 21:22 | ED ---
General Adult HPI - General Chief complaint: Extremity Injury, Lower Stated complaint: rt foot infection- [facility] Time Seen by Provider: 01/09/24 18:24 Source: patient Mode of arrival: wheelchair Limitations: no limitations - History of Present Illness Initial comments: 73-year-old female past medical history significant for rheumatoid arthritis transferred to this facility from [facility]. Per patient she has had some pain and swelling of her right lateral ankle onset 2 days ago. Was placed on steroids which she reports she has been taking. Seen at [facility] there was found to have an elevated white blood cell count at 15.6 and an elevated CRP at 233.3. Sent here for orthopedic evaluation. No fever or chills. Patient has been ambulatory with some pain however has not had any significant difficulties ambulating. No other complaints at this time. X-ray there also showed moderate soft tissue swelling over the lateral malleolus with no significant abnormalities. - Related Data Home Medications Medication Instructions Recorded Confirmed Levothyroxine Sodium [Synthroid] 200 mcg PO DAILY 03/31/18 06/17/23 buPROPion XL [Wellbutrin XL] 200 mg PO BID 03/31/18 06/17/23 Apixaban [Eliquis] 5 mg PO BID 06/15/23 06/17/23 Aspirin 81 mg PO DAILY 06/15/23 06/17/23 Atorvastatin [Lipitor] 40 mg PO DAILY 06/15/23 06/17/23 Chlorthalidone 25 mg PO DAILY 06/15/23 06/17/23 DULoxetine HCL [Cymbalta] 60 mg PO DAILY 06/15/23 06/17/23 Leflunomide [Arava] 20 mg PO DAILY 06/15/23 06/17/23 Metoprolol Tartrate 25 mg PO BID 06/15/23 06/17/23 Potassium Chloride ER [K-Dur 10] 20 meq PO DAILY 06/15/23 06/17/23 amLODIPine [Norvasc] 10 mg PO DAILY 06/15/23 06/17/23 busPIRone HCL [Buspar] 7.5 mg PO BID 06/15/23 06/17/23 inFLIXimab [Remicade] 0 mg IVPB QMONTHLY 06/15/23 06/17/23 metFORMIN HCL 500 mg PO BID 06/15/23 06/17/23 traZODone HCL [Desyrel] 50 mg PO HS 06/15/23 06/17/23 Previous Rx's Medication Instructions Recorded Nystatin 100,000 Unit/gm Powd 1 applic TOPICAL BID #60 powder 12/30/17 [Mycostatin Powder] Allergies Allergy/AdvReac Type Severity Reaction Status Date / Time povidone-iodine Allergy monahan skin Verified 06/17/23 08:10 [From Betadine] soap [From Betadine] Allergy monahan skin Verified 06/17/23 08:10 Review of Systems ROS Statement: Those systems with pertinent positive or pertinent negative responses have been documented in the HPI. ROS Other: All systems not noted in ROS Statement are negative. Past Medical History Past Medical History: Atrial Fibrillation, Cancer, Diabetes Mellitus, Hypertension, Rheumatoid Arthritis (RA), Sleep Apnea/CPAP/BIPAP, Thyroid Disorder Additional Past Medical History / Comment(s): HX OF ARRYTHMIA (led to ablation in 2004) , 1979-HX OF UTERINE/CERVICAL CA, Rt. Breast Ca-January 2016-stage 0, uses CPAP, DDD History of Any Multi-Drug Resistant Organisms: MRSA Date of last positivie culture/infection: 05/26/16 MDRO Source:: breast right knee Past Surgical History: Back Surgery, Bariatric Surgery, Breast Surgery, Cardiac Ablation, Hysterectomy, Joint Replacement, Orthopedic Surgery Additional Past Surgical History / Comment(s): cardiac ablation 2004, RT KNEE REPLACEMENT X2 - Staph Infection, bilaterally BUNION SX, right breast lumpectomy February 2016, right breast mastectomy and sentinel node biopsy and tissue director of solutions architecture March 2016.Tissue director of solutions architecture removed 05/27/16, rt breast tissue removed sleeve gastrectomy 09-21-17 Past Anesthesia/Blood Transfusion Reactions: Motion Sickness Additional Past Anesthesia/Blood Transfusion Reaction / Comment(s): no history of blood transfusions Past Psychological History: Anxiety, Depression Smoking Status: Never smoker - Past Family History Mother Family Medical History: No Reported History Additional Family Medical History / Comment(s): at age 57 mva Father Family Medical History: Liver Disease Additional Family Medical History / Comment(s): cirrhosis, at age 58 General Exam Limitations: no limitations General appearance: alert, in no apparent distress Eye exam: Present: normal appearance Neck exam: Present: normal inspection Respiratory exam: Present: normal lung sounds bilaterally Cardiovascular Exam: Present: regular rate, normal rhythm GI/Abdominal exam: Present: soft Extremities exam: Present: other (Right lateral malleolus shows some erythema minimal warmth and some tenderness to palpation. No significant pain on movement of the joint. Intact dorsiflexion and plantarflexion. Able to ambulate without significant difficulty. No pain out of proportion on palpation. DP/PT pulses intact.) Course Vital Signs 01/09/24 18:20 Temperature 97.8 F Pulse Rate 83 Respiratory 20 Rate Blood Pressure 125/79 O2 Sat by Pulse 95 Oximetry Medical Decision Making - Medical Decision Making Was pt. sent in by a medical professional or institution (, PA, LAB SCIENTIST, urgent care, hospital, or fpc...) When possible be specific @ -[facility] Did you speak to anyone other than the patient for history (EMS, parent, family, police, friend...)? What history was obtained from this source @ -No Did you review nursing and triage notes (agree or disagree)? Why? @ -I reviewed and agree with nursing and triage notes Were old charts reviewed (outside hosp., previous admission, EMS record, old EKG, old radiological studies, urgent care reports/EKG's, fpc records)? Report findings @ -Reviewed charts from [facility]. For further details please see HPI. Differential Diagnosis (chest pain, altered mental status, abdominal pain women, abdominal pain men, vaginal bleeding, weakness, fever, dyspnea, syncope, headache, dizziness, GI bleed, back pain, seizure, CVA, palpatations, mental health, musculoskeletal)? @ -Differential Musculoskeletal Muscular strain, contusion, ligament sprain, fracture, arthritis, septic arthritis, bursitis, cellulitis, muscle spasm, nerve compression, DVT, arterial occlusion, herpes zoster, electrolyte abnormality, tumor.... This is not meant to be in all inclusive list EKG interpreted by me (3pts min.). @ -As above X-rays interpreted by me (1pt min.). @ -None done CT interpreted by me (1pt min.). @ -None done U/S interpreted by me (1pt. min.). @ -None done What testing was considered but not performed or refused? (CT, X-rays, U/S, labs)? Why? @ -None What meds were considered but not given or refused? Why? @ -None Did you discuss the management of the patient with other professionals (professionals i.e. , PA, LAB SCIENTIST, lab, RT, psych nurse, social media developer, community health nurse staff, teacher, multisensor intelligence officer, home health care case manager)? Give summary @ -Case discussed with Dr. Devine of orthopedics, at this time feels that this is more likely consistent with rheumatoid arthritis rather than septic joint. Advise follow-up with her websphere administrator or orthopedics. Was smoking cessation discussed for >3mins.? @ -No Was critical care preformed (if so, how long)? @ -No Were there social determinants of health that impacted care today? How? (Homelessness, low income, unemployed, alcoholism, drug addiction, transportation, low edu. Level, literacy, decrease access to med. care, fdc, rehab)? @ -No Was there de-escalation of care discussed even if they declined (Discuss DNR or withdrawal of care, Hospice)? DNR status @ -No What co-morbidities impacted this encounter? (DM, HTN, Smoking, COPD, CAD, Cancer, CVA, ARF, Chemo, Hep., AIDS, mental health diagnosis, sleep apnea, morbid obesity)? @ -Rheumatoid arthritis Was patient admitted / discharged? Hospital course, mention meds given and route, prescriptions, significant lab abnormalities, going to OR and other pertinent info. @ -Discharge 73-year-old female with a past medical history significant for rheumatoid arthritis sent from [email or web address]. Has been having pain of her right ankle, namely right lateral malleolus for the past 2 to 3 days. Had labs drawn which showed an elevated white blood cell count of 15 and elevated CRP at 233. Patient sent here for orthopedic evaluation. Laboratory studies reviewed. Does show elevated white blood cell count consistent with prior. Case discussed with Dr. Devine of orthopedics. At this time felt more likely symptoms consistent with RA flare rather than septic arthritis. On examination patient has intact plantarflexion dorsiflexion with no significant pain. No significant pain to palpation. Able to ambulate without any significant difficulties. Patient instructed to continue her steroids and follow-up with rheumatology or orthopedics. Discussed strict return precautions with patient who verbalized agreement. At discharge vital signs stable afebrile. Undiagnosed new problem with uncertain prognosis? @ -No Drug Therapy requiring intensive monitoring for toxicity (Heparin, Nitro, Insulin, Cardizem)? @ -No Were any procedures done? @ -No Diagnosis/symptom? @ -Right ankle pain Acute, or Chronic, or Acute on Chronic? @ -Acute Uncomplicated (without systemic symptoms) or Complicated (systemic symptoms)? @ -Uncomplicated Side effects of treatment? @ -No Exacerbation, Progression, or Severe Exacerbation? @ -No Poses a threat to life or bodily function? How? (Chest pain, USA, NM, pneumonia, PE, COPD, DKA, ARF, appy, cholecystitis, CVA, Diverticulitis, Homicidal, Suicidal, threat to staff... and all critical care pts) @ -No - Lab Data Result diagrams: 01/09/24 19:53 01/09/24 19:53 Lab Results 01/09/24 01/09/24 01/09/24 Range/Units 19:53 19:53 19:53 WBC 15.8 H (3.8-10.6) k/uL RBC 4.20 (3.80-5.40) m/uL Hgb 13.1 (11.4-16.0) gm/dL Hct 40.0 (34.0-46.0) % MCV 95.2 (80.0-100.0) fL MCH 31.2 (25.0-35.0) pg MCHC 32.8 (31.0-37.0) g/dL RDW 13.1 (11.5-15.5) % Plt Count 431 (150-450) k/uL MPV 7.4 Neutrophils % 80 % Lymphocytes % 12 % Monocytes % 6 % Eosinophils % 1 % Basophils % 0 % Neutrophils # 12.6 H (1.3-7.7) k/uL Lymphocytes # 1.9 (1.0-4.8) k/uL Monocytes # 0.9 (0-1.0) k/uL Eosinophils # 0.2 (0-0.7) k/uL Basophils # 0.1 (0-0.2) k/uL Sodium 135 L (137-145) mmol/L Potassium 3.5 (3.5-5.1) mmol/L Chloride 99 (98-107) mmol/L Carbon Dioxide 26 (22-30) mmol/L Anion Gap 10 mmol/L BUN 27 H (7-17) mg/dL Creatinine 0.83 (0.52-1.04) mg/dL Est GFR (CKD-EPI)AfAm 83 (>60 ml/min/1.73 sqM) Est GFR (CKD-EPI)NonAf 72 (>60 ml/min/1.73 sqM) Glucose 116 H (74-99) mg/dL Plasma Lactic Acid Jose 1.3 (0.7-2.0) mmol/L Calcium 9.0 (8.4-10.2) mg/dL Total Bilirubin 0.9 (0.2-1.3) mg/dL AST 24 (14-36) U/L ALT 16 (4-34) U/L Alkaline Phosphatase 103 (38-126) U/L Total Protein 6.8 (6.3-8.2) g/dL Albumin 3.8 (3.5-5.0) g/dL Urine Color Urine Appearance (Clear) Urine pH (5.0-8.0) Ur Specific [place] (1.001-1.035) Urine Protein (Negative) Urine Glucose (UA) (Negative) Urine Ketones (Negative) Urine Blood (Negative) Urine Nitrite (Negative) Urine Bilirubin (Negative) Urine Urobilinogen (<2.0) mg/dL Ur Leukocyte Esterase (Negative) Urine RBC (0-5) /hpf Urine WBC (0-5) /hpf Ur Squamous Epith Cells (0-4) /hpf Amorphous Sediment (None) /hpf Urine Bacteria (None) /hpf Hyaline Casts (0-2) /lpf Urine Mucus (None) /hpf Urine Yeast (Budding) (None) /hpf 01/09/24 Range/Units 20:52 WBC (3.8-10.6) k/uL RBC (3.80-5.40) m/uL Hgb (11.4-16.0) gm/dL Hct (34.0-46.0) % MCV (80.0-100.0) fL MCH (25.0-35.0) pg MCHC (31.0-37.0) g/dL RDW (11.5-15.5) % Plt Count (150-450) k/uL MPV Neutrophils % % Lymphocytes % % Monocytes % % Eosinophils % % Basophils % % Neutrophils # (1.3-7.7) k/uL Lymphocytes # (1.0-4.8) k/uL Monocytes # (0-1.0) k/uL Eosinophils # (0-0.7) k/uL Basophils # (0-0.2) k/uL Sodium (137-145) mmol/L Potassium (3.5-5.1) mmol/L Chloride (98-107) mmol/L Carbon Dioxide (22-30) mmol/L Anion Gap mmol/L BUN (7-17) mg/dL Creatinine (0.52-1.04) mg/dL Est GFR (CKD-EPI)AfAm (>60 ml/min/1.73 sqM) Est GFR (CKD-EPI)NonAf (>60 ml/min/1.73 sqM) Glucose (74-99) mg/dL Plasma Lactic Acid Jose (0.7-2.0) mmol/L Calcium (8.4-10.2) mg/dL Total Bilirubin (0.2-1.3) mg/dL AST (14-36) U/L ALT (4-34) U/L Alkaline Phosphatase (38-126) U/L Total Protein (6.3-8.2) g/dL Albumin (3.5-5.0) g/dL Urine Color Yellow Urine Appearance Clear (Clear) Urine pH 6.5 (5.0-8.0) Ur Specific [place] 1.029 (1.001-1.035) Urine Protein Trace H (Negative) Urine Glucose (UA) Negative (Negative) Urine Ketones Negative (Negative) Urine Blood Negative (Negative) Urine Nitrite Negative (Negative) Urine Bilirubin Negative (Negative) Urine Urobilinogen 4.0 (<2.0) mg/dL Ur Leukocyte Esterase Trace H (Negative) Urine RBC 2 (0-5) /hpf Urine WBC 5 (0-5) /hpf Ur Squamous Epith Cells 3 (0-4) /hpf Amorphous Sediment Rare H (None) /hpf Urine Bacteria Rare H (None) /hpf Hyaline Casts 13 H (0-2) /lpf Urine Mucus Rare H (None) /hpf Urine Yeast (Budding) Rare H (None) /hpf Disposition Clinical Impression: Ankle pain Disposition: HOME SELF-CARE Condition: Good Additional Instructions: Please return to the Emergency Department if symptoms worsen or any other concerns. Please follow-up with your websphere administrator or orthopedics. Is patient prescribed a controlled substance at d/c from ED?: No Referrals: Kari Del Castillo MD [Primary Care Provider] - 1-2 days Keysha Devine DO [Doctor of Osteopathic Medicine] - 1-2 days Time of Disposition: 21:15
[2024-01-09 21:39] LABS: C Reactive Protein 36.6 mg/dL (<1.0)
[2024-01-09 22:16] VITALS: BP 129/78; PULSE 78; RESP 18
[2024-01-10 12:33] LABS: Erythrocyte Sedimentation Rate 78 mm/Hr (0-30)
== END 2024-01-09 21:44 | disposition home or self-care (01) ==
LOC: EC 18:10
DX: M25.571 Pain in right ankle and joints of right foot (principal); Z88.8 Allergy status to other drugs, medicaments and biological substances
CPT/HCPCS: 36415; 80053; 81001; 83605; 85025; 85652; 86140; 87040; 99284

== ENCOUNTER 2025-03-24 05:37 | Day surgery (SDC) | payer MEDICARE, BC ==
[2025-03-24] MEDS: LACTATED RINGERS 1,000 ML IV ONE ×3 (05:55→08:18)
[2025-03-24] MEDS ORDERED: TRANEXAMIC 1,000 MG/100ML-NACL 1,000 MG in SALINE 1 100ML.BAG IV PRN (06:00)
[2025-03-24] MEDS ORDERED: TRANEXAMIC 1,000 MG/100ML-NACL 1,000 MG in SALINE 1 100ML.BAG IVPB PRN (06:00)
[2025-03-24 06:29] LABS: Glucose,Whole Blood 93 mg/dL (70-110)
[2025-03-24] MEDS: LACTATED RINGERS 1,000 ML IV SCH (06:36)
[2025-03-24] MEDS: DOCUSATE 100 MG CAP PO PRN (06:37)
[2025-03-24] MEDS: ACETAMINOPHEN TAB 500 MG TAB PO PRN (06:37)
[2025-03-24] MEDS: oxyCODONE ER 10 MG TAB.ER.12H PO PRN (06:37)
[2025-03-24] MEDS: ONDANSETRON 4 MG/2 ML VIAL IVP PRN (06:40)
[2025-03-24] MEDS: FAMOTIDINE 20 MG/2 ML VIAL IVP PRN (06:40)
[2025-03-24] MEDS: DEXAMETHASONE SOD PHOSPHATE 10 MG/ML 1 ML VIAL IV PRN (06:40)
[2025-03-24] MEDS: KETOROLAC 15 MG/ML 1 ML VIAL IVP PRN (06:40)
[2025-03-24] MEDS: MIDAZOLAM 2 MG/2 ML VIAL IV PRN (06:46)
[2025-03-24] MEDS ORDERED: SUCCINYLCHOLINE CHLORIDE 200 MG/10 ML VIAL IV ONE (07:00)
[2025-03-24] MEDS ORDERED: fentaNYL (PF) 50 MCG/ML 2 ML AMP ONE (07:00)
[2025-03-24] MEDS ORDERED: DEXAMETHASONE SOD PHOSPHATE 4 MG/ML 1 ML VIAL ONE (07:00)
[2025-03-24] MEDS ORDERED: LIDOCAINE 1% INJ 10MG/ML (20 ML MDV) ONE (07:00)
[2025-03-24] MEDS ORDERED: ROCURONIUM 10 MG/ML (5 ML VIAL) IV ONE (07:00)
[2025-03-24] MEDS ORDERED: ROPIVACAINE 5 MG/ML 30 ML VIAL ONE (07:00)
[2025-03-24] MEDS ORDERED: NEOSTIGMINE 1 MG/ML 10 ML VIAL ONE (07:00)
[2025-03-24] MEDS ORDERED: GLYCOPYRROLATE 0.2 MG/ML 2 ML VIAL ONE (07:00)
[2025-03-24] MEDS ORDERED: TRANEXAMIC 1,000 MG/100ML-NACL PREMIX BAG ONE (07:00)
[2025-03-24] MEDS ORDERED: HYDROmorphone 0.5 MG/0.5 ML SYRINGE IVP PRN ×4 (07:00→08:46)
[2025-03-24] MEDS ORDERED: HYDROmorphone (PF) 1 MG/ML ONE (07:00)
[2025-03-24] MEDS ORDERED: PROPOFOL 10 MG/ML 20 ML VIAL IV ONE (07:00)
[2025-03-24] MEDS: ceFAZolin 2 GM in DEXTROSE 5% IN WATER 50 ML IVPB PRN (07:04)
[2025-03-24] MEDS: ROPIVACAINE/EPI/CLONIDINE/KET 50 ML SYRINGE MISCELLANE PRN (07:41)
[2025-03-24] MEDS ORDERED: hydrOXYzine pamoate 25 MG CAP PO PRN (08:46)
[2025-03-24] MEDS ORDERED: MAGNESIUM HYDROXIDE 2,400 MG/30 ML CUP PO PRN (08:46)
[2025-03-24] MEDS ORDERED: diazePAM 5 MG TAB PO PRN ×2 (08:46)
[2025-03-24] MEDS ORDERED: HYDROcodone/APAP 5-325MG 1 EACH TAB PO PRN (08:46)
[2025-03-24] MEDS ORDERED: NALOXONE 0.4 MG/ML 1 ML VIAL IV PRN (08:46)
[2025-03-24] MEDS ORDERED: ONDANSETRON 4 MG/2 ML VIAL IVP PRN (08:46)
[2025-03-24] MEDS ORDERED: TEMAZEPAM 15 MG CAP PO PRN (08:46)
--- NOTE | 2025-03-24 08:46 | P.OP ---
Date of Procedure: 03/24/25 Preoperative Diagnosis: Severe right hip osteoarthritis Postoperative Diagnosis: Same Procedure(s) Performed: Right direct anterior total hip arthroplasty Implants: 1. Cobalt Trident II Acetabular Cup, Size #50 2. Reuben Insignia Size # 5 Femoral Stem, Standard Offset 3. Biolox delta femoral head, 36 mm, +0 mm neck Anesthesia: CLIVE Surgeon: Jose Miguel Viramontes Amphibian Crewmember #1: Ibrahima Cordero Estimated Blood Loss (ml): 300 IV fluids (ml): 800 Pathology: none sent Condition: stable Disposition: PACU Indications for Procedure: I had a long discussion with the patient in the office on the potential risks and complications of an elective total hip replacement through a direct anterior approach. Risks discussed include, but are certainly not limited to, risks from anesthesia, superficial infection requiring local wound care or antibiotics, deep erin-prosthetic joint infection and the treatment required to eradicate infection, intraoperative fracture, postoperative periprosthetic fracture, dam age to local blood vessels or nerves particularly the lateral femoral cutaneous nerve, delayed wound healing requiring local wound care or possibly surgical debridement, hip dislocation, leg length discrepancy, soft tissue irritation around the total hip implant such as iliopsoas tendinitis or trochanteric bursitis, wear and osteolysis from the implants, squeaking or audible noises, groin pain, thigh pain, heterotopic ossification, stiffness, aseptic loosening of the implants, dissatisfaction with surgical outcome, need for revision surgery, DVT, PE, swelling of the operative extremity, acute coronary event, stroke, failure to thrive, and possibly loss of life or limb. The patient understands that while these are the most common complications after an elective hip replacement there are certainly other less common complications possible. They were given ample time to ask questions regarding the potential complications of a hip replacement. Following our discussion the patient provided their verbal and written consent to go forward with an elective total hip replacement. Operative Findings: Severe right hip osteoarthritis with complete loss of cartilage from the acetabulum and femoral head. The patient had good bone quality in the proximal femur so I elected to use cementless femoral fixation. Description of Procedure: The patient was identified in the preoperative holding area and the correct hip was marked with my initials. I reviewed the procedure and consent with the patient. All of their questions were answered. The patient was then brought back into the operating room by anesthesia. While on the [facility] anesthesia was administered by the anesthesia team. Preoperative antibiotics and tranexamic acid were also given. After the patient was under anesthesia I examined their ankles to determine their preoperative leg length discrepancy. The skin over the anterior aspect of the hip was shaved to remove hair over the site of planned incision. Both feet and ankles were padded with webril and boots for the [place] were applied. The patient was then carefully transferred onto the [place] table. A perineal post was immediately placed. The arms were placed on arm holders and were well-padded. Both boots were secured to the spars on the [place] table. The patient was positioned so that the pelvis was centered over the post. Nonsterile drapes were applied. A timeout was performed identifying the correct patient, operative extremity, and procedure. At this point fluoroscopy was brought in to take preoperative images of the pelvis and operative hip. Using the standing AP pelvis from the office as a template, a comparable image was obtained with fluoroscopy. A metallic bar was used to create a bi-ischial line for use as a reference to leg length adjustments during the procedure. Global offset was also measured on both the operative and nonoperative leg. Fluoroscopy was then brought out and a pre-scrub using a chlorhexidine scrub brush was performed. The operative limb was then prepped and draped in the standard sterile fashion. An anterior longitudinal incision was made lateral and distal to the ASIS. The skin and subcutaneous tissues were incised sharply. The underlying tensor fascia was identified and incised in its midportion. The fascia was dissected free from the underlying muscle and the muscle belly was retracted. A blunt tipped cobra retractor was placed over the superior neck under the muscle fibers of the gluteus minimus. The deep enveloping fascia of the tensor was incised. The anterior leash of vessels were then identified and cauterized. The fascia between the rectus and the capsule was then incised and the pre-capsular fat was excised. A second Cobra was placed inferior to the neck. The interval between the rectus and iliocapsularis and the hip capsule was developed and a retractor was placed carefully over the anterior rim of the acetabulum. A T-shaped anterior capsulotomy was performed. The superior capsular leaflet was left in place in the inferior capsular flap was excised. The Cobra retractors were placed intracapsularly. We then made a femoral neck osteotomy according to preoperative and intraoperative templating and confirmed the level of the osteotomy using fluoroscopic imaging. The femoral head was removed, passed off to the back table, and sized. The superior capsular flap was excised. Retractors were placed circumferentially exposing the acetabulum. We then circumferentially debrided the acetabulum free of labrum and osteophytes. The pulvinar was removed to fully visualize the cotyloid fossa. We then sequentially reamed to achieve peripheral fit and excellent bleeding subchondral bone. The socket was thoroughly irrigated. The acetabular component was impacted into the appropriate position using fluoroscopy to guide version, inclination, and depth of insertion taking care to have a comparable image of the AP pelvis to the standing image taken in the office. An excellent press-fit was achieved and final position was confirmed using fluoroscopy. The press fit was augmented with a bony cancellus dome screw. The liner was then impacted into the socket. Attention was then turned to the femur. The remnant dorsal lateral capsule was excised. The short external rotators were visible and protected. A bone hook was used to confirm appropriate translation of the trochanter away from the acetabulum. The leg was then extended and adducted and the bone hook was used to elevate the femur for broaching. A box osteotome and blunt tipped canal sound was then utilized to gain access to the femoral canal. We then sequentially broached the femur in appropriate anteversion until excellent torsional stability was achieved. The neck cut was brought flush to the trial broach with a calcar planar. A trial neck and head were then placed onto the broach and the hip was atraumatically reduced under direct visualization. External rotation to 90 was performed to assess stability. Fluoroscopy was brought in. An AP and lateral fluoroscopic image of the proximal femur was obtained to assess position and fill of the trial broach. An AP of the pelvis was then obtained and matched to the preoperative image taken. A bi-ischial bar was then placed and measurements were taken to assess changes in length and offset. The hip was then carefully dislocated, the proximal femur was exposed, and the trial implants were removed. The wound and proximal femur was thoroughly irrigated using sterile saline and pulsatile lavage. The final femoral implant was dispensed and gently tapped into place generating an excellent press-fit. The trunnion was cleansed and the final head was tapped into place to engage the Frederick taper. The acetabulum was irrigated and visualized to be free of debris. The hip was carefully reduced. Stability was checked clinically with external rotation to 90 and there was no evidence of instability. Final fluoroscopic images were taken. The wound was then thoroughly irrigated with Irrisept. 3 L of sterile saline was irrigated through the wound using pulsatile lavage. Local anesthetic cocktail was injected into the soft tissues around the surgical field. The wound was then closed in layers. A sterile dressing was placed over the surgical incision. The drapes were taken down and the patient was carefully transferred off of the [place] table. Following removal of the boots the leg lengths felt acceptable. The patient was then taken to recovery room having tolerated the procedure well. Ibrahima Cordero PA-C was required as a skilled bus assistant due to the complexity of surgery for patient positioning, draping, exposure, retraction, closure of wound and application of dressing. PLAN: The patient can weight-bear as tolerated on the operative extremity. 2 doses of postoperative antibiotics. DVT prophylaxis with aspirin 81 mg twice a day based on preoperative risk stratification. Physical therapy for gait training.
--- NOTE | 2025-03-24 09:01 | FL ---
EXAMINATION TYPE: FL guidance operating room, XR Hip Limited RT DATE OF EXAM: 03/24/2025 CLINICAL INDICATION: Female, 74 years old with history of M16.11 RIGHT HIP OSTEOARTHRITIS, pain. TECHNIQUE: Fluoroscopy. Intraoperative 2 views right hip. COMPARISON: None. FINDINGS: Fluoroscopic guidance was provided during right hip replacement procedure performed by Dr. Viramontes. A total of 34.4 seconds of fluoroscopic time was utilized during the procedure . TOTAL D AP = 1.0828 Gycm2. Images acquired show metallic hardware from right hip arthroplasty satisfactory in position on fronta l projection. IMPRESSION: As Above. [facility], , 03/24/2025 8:59 AM
[2025-03-24] MEDS: METOPROLOL TARTRATE 5 MG/5 ML VIAL IVP STA (09:20)
--- NOTE | 2025-03-24 10:43 | P.ANPRN ---
Procedure Note - Anesthesia - Nerve Block Performed Right Silviano Single Time Out Performed: Yes Date of Procedure: 03/24/25 Procedure Start Time: 06:45 Procedure Stop Time: 06:55 Location of Patient: PreOp Indication: Acute Post-Operative Pain, Requested by Surgeon Sedation Type: Sedate with meaningful contact maintained Preparation: Sterile Prep, Sterile Dressing Position: Supine Catheter: None Needle Types: Facet Needle Gauge: 20 Ultrasound used to visualize needle placement: Yes Ultrasound used to observe medication spread: Yes Injectate: 0.5% Ropivacaine (see comment for volume) (30 ml + decadron 4 mg) Blood Aspirated: No Pain Paresthesia on Injection Noted: No Resistance on Injection: Normal Image Stored and Saved: Yes Events: Uneventful and Well Tolerated
[2025-03-24 10:47] LABS: Glucose,Whole Blood 131 mg/dL (70-110)
[2025-03-24] MEDS: SODIUM CHLORIDE 0.9% 1,000 ML IV SCH (16:41)
[2025-03-24] MEDS: ceFAZolin 2 GM in DEXTROSE 5% IN WATER 50 ML IVPB SCH (17:07)
--- NOTE | 2025-03-24 18:51 | P.HPIM ---
History of Present Illness H&P Date: 03/24/25 Chief Complaint: Right hip surgery Pleasant 74-year-old patient, follows with Dr. Kari Del Castillo. Patient has undergone right hip total hip arthroplasty. Slight numbness in the right leg. No nausea vomiting. Denies any coronary artery disease. No dizziness no lightheadedness. Review of systems: GEN.: None EYES: None HEENT: None NECK: None RESPIRATORY: None CARDIOVASCULAR: None GASTROINTESTINAL: None GENITOURINARY: None MUSCULOSKELETAL: Joint pains] LYMPHATICS: None HEMATOLOGICAL: None PSYCHIATRY: None NEUROLOGICAL: None Social history: Lives with her . Non-smoker. No alcohol intake reported. Physical examination: VITAL SIGNS: 97.3, 95, 16, 97 x 61, 90% room air GENERAL: BMI 26, sitting up bed awake. EYES: Pupils equal. Conjunctiva berry l. HEENT: External appearance of nose and ears normal, oral cavity grossly normal. NECK: JVD not raised; masses not palpable. HEART: First and second heart sounds are normal; no edema. LUNGS: Respiratory rate normal; clear to auscultation. ABDOMEN: Soft, nontender, liver spleen not palpable, no masses palpable. PSYCH: Alert and oriented x3; mood and affect berry l. MUSCULOSKELETAL:No Clubbing/cyanosis;muscles-grossly intact. Dressing over the right hip incision site NEUROLOGICAL: Cranial nerves grossly intact; no facial asymmetry, power and sensation grossly intact. LYMPHATICS: No lymph nodes palpable in the axilla and neck INVESTIGATIONS, reviewed in the clinical context: March 16, 2025: White count 4.2 hemoglobin 11.8 platelets 325 sodium 142 potassium 4.4 creatinine 1.1 Assessment plan: - Right direct anterior total hip arthroplasty Eliquis has been resumed by orthopedic team. IV cefazolin for infection prophylaxis. Pain medications. - Atrial fibrillation Telemetry. Eliquis resumed - Diabetes mellitus type 2 - Essential hypertension Metoprolol 25 mg twice daily. As blood pressure running a bit on the lower side hold off amlodipine. - Primary osteoarthritis and rheumatoid arthritis Pain medication as needed - Obstructive sleep apnea not using a CPAP - Hyperlipidemia Lipitor 40 mg nightly - Hypothyroid Synthroid 250 mcg a day - Depression Wellbutrin XL 200 g twice daily. BuSpar 7.5 mg p.o. twice daily. - Chronic insomnia Trazodone 50 mg nightly. Ambien as needed - Chronic urinary incontinence Vesicare -Full code Discussed with the patient. - Thank you Dr. Viramontes Past Medical History Past Medical History: Atrial Fibrillation, Cancer, Diabetes Mellitus, Hypertension, Osteoarthritis (OA), Rheumatoid Arthritis (RA), Sleep Apnea/CPAP/BIPAP, Thyroid Disorder Additional Past Medical History / Comment(s): 1979-HX OF UTERINE/CERVICAL CA, Rt. 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 in the future, urinary incontinence History of Any Multi-Drug Resistant Organisms: MRSA Date of last positivie culture/infection: 05/26/16 MDRO Source:: breast right knee Past Surgical History: Back Surgery, Bariatric Surgery, Breast Surgery, Cardiac Ablation, Hysterectomy, Joint Replacement, Orthopedic Surgery Additional Past Surgical History / Comment(s): cardiac ablation 2004, RT KNEE REPLACEMENT X2 - Staph Infection, bilaterally BUNION SX, right breast lumpectomy February 2016, right breast mastectomy and sentinel node biopsy and tissue head concierge March 2016.Tissue head concierge removed 05/27/16, rt breast tissue removed sleeve gastrectomy 09-21-17, parathyroidectomy, total thyroidectomy, TRH Past Anesthesia/Blood Transfusion Reactions: Motion Sickness Additional Past Anesthesia/Blood Transfusion Reaction / Comment(s): no history of blood transfusions Past Psychological History: Anxiety, Depression Smoking Status: Never smoker Past Alcohol Use History: None Reported Additional Past Alcohol Use History / Comment(s): Patient is a lifelong nonsmoker. She denies any medical marijuana, marijuana, street drug or alcohol use. Patient was at home with her . 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 Past Drug Use History: None Reported - Past Family History Mother Family Medical History: No Reported History Additional Family Medical History / Comment(s): at age 57 mva Father Family Medical History: Liver Disease Additional Family Medical History / Comment(s): cirrhosis, at age 58 Medications and Allergies Home Medications Medication Instructions Recorded Confirmed Type Levothyroxine Sodium [Synthroid] 250 mcg PO DAILY 03/31/18 03/21/25 History buPROPion XL [Wellbutrin XL] 200 mg PO BID 03/31/18 03/21/25 History Apixaban [Eliquis] 5 mg PO BID 06/15/23 03/24/25 History Aspirin 81 mg PO DAILY 06/15/23 03/24/25 History Atorvastatin [Lipitor] 40 mg PO HS 06/15/23 03/21/25 History DULoxetine HCL [Cymbalta] 90 mg PO DAILY 06/15/23 03/24/25 History Leflunomide [Arava] 20 mg PO DAILY 06/15/23 03/21/25 History Metoprolol Tartrate 25 mg PO BID 06/15/23 03/24/25 History amLODIPine [Norvasc] 5 mg PO DAILY 06/15/23 03/24/25 History busPIRone HCL [Buspar] 7.5 mg PO BID 06/15/23 03/21/25 History traZODone HCL [Desyrel] 50 mg PO HS 06/15/23 03/21/25 History ALPRAZolam [Xanax] 0.5 mg PO DIRECTED PRN 03/21/25 03/21/25 History Acetaminophen/Diphenhydramine 2 tab PO HS 03/21/25 03/21/25 History [Tylenol PM 500-25mg] Cholecalciferol [Vitamin D3 (25 1,000 unit PO DAILY 03/21/25 03/21/25 History Mcg = 1000 Iu)] Cyclobenzaprine [Flexeril] 10 mg PO DIRECTED PRN 03/21/25 03/21/25 History Empagliflozin [Jardiance] 10 mg PO DAILY 03/21/25 03/24/25 History Fluticasone Nasal [place] [Flonase 2 spray EA NOSTRIL DIRECTED PRN 03/21/25 03/21/25 History Nasal [place]] Ibuprofen [Motrin] 800 mg PO DIRECTED PRN 03/21/25 03/24/25 History Nystatin 100,000Unit/gm Cream 1 applic TOPICAL BID PRN 03/21/25 03/21/25 History [Mycostatin Cream] Solifenacin Succinate [Vesicare] 5 mg PO DAILY 03/21/25 03/21/25 History Tirzepatide [Mounjaro] 5 mg SQ SA 03/21/25 03/24/25 History Tofacitinib Citrate [Xeljanz Xr] 11 mg PO DAILY 03/21/25 03/24/25 History Urea Lotion 40 % TOPICAL DIRECTED PRN 03/21/25 History Zolpidem [Ambien] 5 mg PO HS PRN 03/21/25 03/21/25 History Allergies Allergy/AdvReac Type Severity Reaction Status Date / Time nickel Allergy Unknown Verified 03/24/25 06:01 povidone-iodine Allergy monahan skin Verified 03/24/25 06:01 [From Betadine] soap [From Betadine] Allergy monahan skin Verified 03/24/25 06:01 Physical Exam Vitals: Vital Signs Temp Pulse Resp BP Pulse Ox 03/24/25 14:00 97.3 F L 95 16 97/61 90 L 03/24/25 12:00 87 18 109/90 97 03/24/25 11:30 94 18 104/73 97 03/24/25 11:00 90 18 110/78 97 03/24/25 10:30 85 18 116/85 97 03/24/25 10:15 90 18 116/83 97 03/24/25 10:00 92 18 122/81 98 03/24/25 09:45 110 H 14 119/81 97 03/24/25 09:30 110 H 14 120/90 99 03/24/25 09:24 108 H 14 132/87 99 03/24/25 09:11 114 H 14 159/99 99 03/24/25 09:06 97.1 F L 129 H 16 155/108 98 03/24/25 06:50 78 14 144/102 96 03/24/25 06:10 98.1 F 80 16 147/97 97 Intake and Output 03/24/25 03/24/25 03/24/25 06:59 14:59 22:59 Intake Total 200 1750 Output Total 300 Balance 200 1450 Intake: IV 200 1750 Output: Estimated Blood Loss 300 Other: # Voids 2 Weight 74.3 kg 74.3 kg Results Labs: Abnormal Lab Results - Last 24 Hours (Table) 03/24/25 Range/Units 10:46 POC Glucose (mg/dL) 131 H (70-110) mg/dL Thrombosis Risk Factor Assmnt - Choose All That Apply Any of the Below Risk Factors Present?: Yes Each Factor Represents 1 point: Obesity (BMI >25), Varicose veins Other Risk Factors: Yes Each Risk Factor Represents 2 Points: Age 61-74 years Each Risk Factor Represents 5 Points: Elective major lower extremity arthoplasty Thrombosis Risk Factor Assessment Total Risk Factor Score: 9 Thrombosis Risk Factor Assessment Level: High Risk
[2025-03-24] MEDS: buPROPion SR 100 MG TABLET.ER PO SCH (20:35)
[2025-03-24] MEDS: traZODone HCL 50 MG TAB PO SCH (20:36)
[2025-03-24] MEDS: SENNOSIDES-DOCUSATE SODIUM 1 EACH TAB PO SCH (20:36)
[2025-03-24] MEDS: METOPROLOL TARTRATE 25 MG TAB PO SCH (20:36)
[2025-03-24] MEDS: busPIRone HCl 5 MG TAB PO SCH (20:36)
[2025-03-24] MEDS: ATORVASTATIN 40 MG TAB PO SCH (20:36)
[2025-03-24] MEDS: ZOLPIDEM 5 MG TAB PO PRN (20:52)
[2025-03-24] MEDS ORDERED: ASPIRIN 81 MG PO SCH (21:00)
[2025-03-25] MEDS: HYDROcodone/APAP 10-325MG 1 EACH TAB PO PRN (01:18)
[2025-03-25] MEDS: LEVOTHYROXINE 125 MCG TAB PO SCH (06:24)
[2025-03-25 08:04] VITALS: BP 120/72; PULSE 104; RESP 17; TEMP 99.2
--- NOTE | 2025-03-25 08:05 | P.DS ---
Providers Date of admission: Thursday03/24/2025 Attending physician: Jose Miguel Viramontes Consults: 03/24/25 08:46 Consult Physician Routine Consulting Provider: Damián Payton Consult Reason/Comments: post op LORENA Do you want consulting provider notified?: Yes Primary care physician: Kari Del Castillo Hospital Course: Patient is a very pleasant 74-year-old female who was admitted yesterday and underwent an uncomplicated total hip replacement. Following surgery she was transferred to the orthopedic floor. She was seen by internal medicine. She received 2 doses of postoperative antibiotics. She was started on DVT prophylaxis. She was seen by myself on postoperative day #1 and was doing well. The dressing over the anterior aspect of the hip was intact. Her thigh was soft and compressible. Femoral nerve function was intact. She was able to actively plantarflex and dorsiflex her ankle and her toes. Physical therapy was ordered. She was tentatively cleared for discharge home pending physical therapy and pain control. Patient Condition at Discharge: Good Plan - Discharge Summary Discharge Rx Participant: Yes New Discharge Prescriptions: No Action Levothyroxine Sodium [Synthroid] 250 mcg PO DAILY buPROPion XL [Wellbutrin XL] 200 mg PO BID amLODIPine [Norvasc] 5 mg PO DAILY Leflunomide [Arava] 20 mg PO DAILY Apixaban [Eliquis] 5 mg PO BID ALPRAZolam [Xanax] 0.5 mg PO DIRECTED PRN PRN Reason: Anxiety Nystatin 100,000Unit/gm Cream [Mycostatin Cream] 1 applic TOPICAL BID PRN PRN Reason: Skin Irritation Zolpidem [Ambien] 5 mg PO HS PRN PRN Reason: Insomnia Cyclobenzaprine [Flexeril] 10 mg PO DIRECTED PRN PRN Reason: Muscle Spasm Empagliflozin [Jardiance] 10 mg PO DAILY Tirzepatide [Mounjaro] 5 mg SQ SA Solifenacin Succinate [Vesicare] 5 mg PO DAILY traZODone HCL [Desyrel] 50 mg PO HS busPIRone HCL [Buspar] 7.5 mg PO BID Metoprolol Tartrate 25 mg PO BID DULoxetine HCL [Cymbalta] 90 mg PO DAILY Atorvastatin [Lipitor] 40 mg PO HS Aspirin 81 mg PO DAILY Tofacitinib Citrate [Xeljanz Xr] 11 mg PO DAILY Fluticasone Nasal [place] [Flonase Nasal [place]] 2 spray EA NOSTRIL DIRECTED PRN PRN Reason: allergies Acetaminophen/Diphenhydramine [Tylenol PM 500-25mg] 2 tab PO HS Ibuprofen [Motrin] 800 mg PO DIRECTED PRN PRN Reason: Pain Urea Lotion 40 % TOPICAL DIRECTED PRN PRN Reason: Dry Skin Cholecalciferol [Vitamin D3 (25 Mcg = 1000 Iu)] 1,000 unit PO DAILY Discharge Medication List Levothyroxine Sodium [Synthroid] 250 mcg PO DAILY 03/31/18 [History] buPROPion XL [Wellbutrin XL] 200 mg PO BID 03/31/18 [History] Apixaban [Eliquis] 5 mg PO BID 06/15/23 [History] Aspirin 81 mg PO DAILY 06/15/23 [History] Atorvastatin [Lipitor] 40 mg PO HS 06/15/23 [History] DULoxetine HCL [Cymbalta] 90 mg PO DAILY 06/15/23 [History] Leflunomide [Arava] 20 mg PO DAILY 06/15/23 [History] Metoprolol Tartrate 25 mg PO BID 06/15/23 [History] amLODIPine [Norvasc] 5 mg PO DAILY 06/15/23 [History] busPIRone HCL [Buspar] 7.5 mg PO BID 06/15/23 [History] traZODone HCL [Desyrel] 50 mg PO HS 06/15/23 [History] ALPRAZolam [Xanax] 0.5 mg PO DIRECTED PRN 03/21/25 [History] Acetaminophen/Diphenhydramine [Tylenol PM 500-25mg] 2 tab PO HS 03/21/25 [History] Cholecalciferol [Vitamin D3 (25 Mcg = 1000 Iu)] 1,000 unit PO DAILY 03/21/25 [History] Cyclobenzaprine [Flexeril] 10 mg PO DIRECTED PRN 03/21/25 [History] Empagliflozin [Jardiance] 10 mg PO DAILY 03/21/25 [History] Fluticasone Nasal [place] [Flonase Nasal [place]] 2 spray EA NOSTRIL DIRECTED PRN 03/21/25 [History] Ibuprofen [Motrin] 800 mg PO DIRECTED PRN 03/21/25 [History] Nystatin 100,000Unit/gm Cream [Mycostatin Cream] 1 applic TOPICAL BID PRN 03/21/25 [History] Solifenacin Succinate [Vesicare] 5 mg PO DAILY 03/21/25 [History] Tirzepatide [Mounjaro] 5 mg SQ SA 03/21/25 [History] Tofacitinib Citrate [Xeljanz Xr] 11 mg PO DAILY 03/21/25 [History] Urea Lotion 40 % TOPICAL DIRECTED PRN 03/21/25 [History] Zolpidem [Ambien] 5 mg PO HS PRN 03/21/25 [History] Follow up Appointment(s)/Referral(s): [facility] [[facility]] - 1-2 Days ([facility] will call you to schedule your in home physical therapy visits.) Jose Miguel Viramontes MD [Medical Doctor] - 2 Weeks Activity/Diet/Wound Care/Special Instructions: 1. Weight-bear as tolerated on your operative extremity unless instructed otherwise. Use a walker or other assistive device to ambulate. 2. Leave surgical dressing in place. If your dressing becomes saturated with blood, there is drainage, or the dressing becomes loose please contact the office. 3. It is okay to shower with your surgical dressing, but do not submerge in water (no hot tubs, bath's, swimming etc.) 4. Make sure to take her blood clot prevention medication as prescribed (aspirin, Eliquis, Xarelto, and Plavix are commonly prescribed medications for blood clot prevention) 5. While taking [place] or Percocet for pain make sure you're taking a stool softener (Colace) and drink lots of water. 6. Keep all follow-up appointments as scheduled. You will usually be seen in 1-2 weeks following surgery. 7. Please contact the office with any questions or concerns [phone] Discharge Disposition: HOME WITH HOME HEALTH SERVICES
[2025-03-25] MEDS: FAMOTIDINE 20 MG TAB PO SCH (08:37)
[2025-03-25] MEDS: DAPAGLIFLOZIN PROPANEDIOL 5 MG TABLET PO SCH (08:37)
[2025-03-25] MEDS: DULoxetine HCL 30 MG CAPSULE.DR PO SCH (08:38)
[2025-03-25] MEDS: LEFLUNOMIDE 20 MG TAB PO SCH (08:38)
[2025-03-25] MEDS: PATIENT'S OWN (Tirzepatide [Mounjaro] 5 MG/0.5 ML Pen.Injctr) SQ SCH (08:39)
[2025-03-25] MEDS: TOFACITINIB CITRATE 11 MG PO SCH (08:40)
[2025-03-25] MEDS: APIXABAN 5 MG TAB PO SCH (08:46)
[2025-03-25 09:15] LABS: Basophils # (A) 0.02 X 10*3/uL (0.00-0.10); Basophils % (A) 0.2 %; Eosinophils # (A) 0 X 10*3/uL (0.04-0.35); Eosinophils % (A) 0 %; HCT 27.4 % (37.2-46.3); HGB 8.8 g/dL (12.0-15.0); Lymphocytes # (A) 0.75 X 10*3/uL (0.90-5.00); Lymphocytes % (A) 5.9 %; MCH 30.7 pg (27.0-32.0); MCHC 32.1 g/dL (32.0-37.0); MCV 95.5 FL (80.0-97.0); Mean Platelet Volume 11.2 FL (9.5-12.2); NRBC Per 100 WBC 0 X 10*3/uL (0.00-0.01); Neutrophils # (A) 10.53 X 10*3/uL (1.80-7.70); Neutrophils % (A) 82.4 %; Platelet Count 236 X 10*3/uL (140-440); RBC 2.87 X 10*6/uL (4.10-5.20); RDW 16.1 % (11.5-14.5); WBC 12.76 X 10*3/uL (4.50-10.00)
[2025-03-25] MEDS: TROSPIUM CHLORIDE 20 MG TABLET PO SCH (10:12)
[2025-03-25] MEDS: MULTIVITAMINS, THERA 1 EACH TAB PO SCH (11:29)
--- NOTE | 2025-03-25 18:45 | P.PN ---
Progress Note - Text Progress Note Date: 03/25/25 Chief Complaint: Right hip surgery Pleasant 74-year-old patient, follows with Dr. Kari Del Castillo. Patient has undergone right hip total hip arthroplasty. Slight numbness in the right leg. No nausea vomiting. Denies any coronary artery disease. No dizziness no lightheadedness. March 25: Doing well. Did ambulate. No dizziness no lightheadedness. He tolerated diet. Some drop in hemoglobin. Will be discharged on ferrous sulfate. Discussed with the patient informed her that check her daily blood pressure. Once her systolic blood pressures above 140 then to resume her amlodipine which is to be held otherwise. Social history: Lives with her . Non-smoker. No alcohol intake reported. Physical examination: VITAL SIGNS: 99.2, 104, 17, 120 x 72, 95% room air GENERAL: BMI 26,, comfortable EYES: Pupils equal. Conjunctiva berry l. HEENT: External appearance of nose and ears normal, oral cavity grossly normal. NECK: JVD not raised; masses not palpable. HEART: First and second heart sounds are normal; no edema. LUNGS: Respiratory rate normal; clear to auscultation. ABDOMEN: Soft, nontender, liver spleen not palpable, no masses palpable. PSYCH: Alert and oriented x3; mood and affect berry l. MUSCULOSKELETAL:No Clubbing/cyanosis;muscles-grossly intact. Dressing over the right hip incision site INVESTIGATIONS, reviewed in the clinical context: March 25: White count 12.7 hemoglobin 8.8 platelets 236 March 16, 2025: White count 4.2 hemoglobin 11.8 platelets 325 sodium 142 potassium 4.4 creatinine 1.1 Assessment plan: - Right direct anterior total hip arthroplasty Eliquis has been resumed by orthopedic team. IV cefazolin for infection prophylaxis. Pain medications. - Atrial fibrillation Telemetry. Eliquis resumed - Acute postprocedure blood loss anemia expected from surgery Ferrous sulfate daily - Diabetes mellitus type 2 - Essential hypertension Metoprolol 25 mg twice daily. Daily blood pressure check. Resume amlodipine when systolic blood pressure above 140 - Primary osteoarthritis and rheumatoid arthritis Pain medication as needed - Obstructive sleep apnea not using a CPAP - Hyperlipidemia Lipitor 40 mg nightly - Hypothyroid Synthroid 250 mcg a day - Depression Wellbutrin XL 200 g twice daily. BuSpar 7.5 mg p.o. twice daily. - Chronic insomnia Trazodone 50 mg nightly. Ambien as needed - Chronic urinary incontinence Vesicare -Full code Patient to have a CBC next week. - Thank you Dr. Viramontes Past Medical History Past Medical History: Atrial Fibrillation, Cancer, Diabetes Mellitus, Hypertension, Osteoarthritis (OA), Rheumatoid Arthritis (RA), Sleep Apnea/CPAP/BIPAP, Thyroid Disorder Additional Past Medical History / Comment(s): 1979-HX OF UTERINE/CERVICAL CA, Rt. Breast Ca-January 2016-stage 0, normally uses CPAP but hasn't since has been sleeping in a recliner, DDD, low functioning kidneys-will be seeing [place] in the future, urinary incontinence History of Any Multi-Drug Resistant Organisms: MRSA Date of last positivie culture/infection: 05/26/16 MDRO Source:: breast right knee Past Surgical History: Back Surgery, Bariatric Surgery, Breast Surgery, Cardiac Ablation, Hysterectomy, Joint Replacement, Orthopedic Surgery Additional Past Surgical History / Comment(s): cardiac ablation 2004, RT KNEE REPLACEMENT X2 - Staph Infection, bilaterally BUNION SX, right breast lumpectomy February 2016, right breast mastectomy and sentinel node biopsy and tissue spud driller March 2016.Tissue spud driller removed 05/27/16, rt breast tissue removed sleeve gastrectomy 09-21-17, parathyroidectomy, total thyroidectomy, TRH Past Anesthesia/Blood Transfusion Reactions: Motion Sickness Additional Past Anesthesia/Blood Transfusion Reaction / Comment(s): no history of blood transfusions Past Psychological History: Anxiety, Depression Smoking Status: Never smoker Past Alcohol Use History: None Reported Additional Past Alcohol Use History / Comment(s): Patient is a lifelong nonsmoker. She denies any medical marijuana, marijuana, street drug or alcohol use. Patient was at home with her . 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 Past Drug Use History: None Reported
[2025-03-25] MEDS ORDERED: TEMAZEPAM 15 MG CAP PO PRN (22:00)
== END 2025-03-25 13:39 | disposition home health service (06) ==
LOC: OR 05:37 → 4SSUR 12:24 → OR 03-25 13:39
PROVIDERS: ATTEND Orthopaedic Surgery
DX: M16.11 Unilateral primary osteoarthritis, right hip (principal); G89.18 Other acute postprocedural pain; I48.91 Unspecified atrial fibrillation; E11.9 Type 2 diabetes mellitus without complications; I10 Essential (primary) hypertension; M06.9 Rheumatoid arthritis, unspecified; G47.33 Obstructive sleep apnea (adult) (pediatric); E78.5 Hyperlipidemia, unspecified; E03.9 Hypothyroidism, unspecified; F32.A Depression, unspecified; G47.00 Insomnia, unspecified; Z79.82 Long term (current) use of aspirin; Z79.84 Long term (current) use of oral hypoglycemic drugs; Z79.890 Hormone replacement therapy; Z79.01 Long term (current) use of anticoagulants
CPT/HCPCS: 97161; 64473; 85025; 73501; 27130; C1776; J2250; J0330; J1100 ×2; J2710; S0106 ×2; J0690; J2405; J2003; J3010; J1171; J2795; J1885; J2704; J1596; J1308

== ENCOUNTER 2025-05-19 12:42 | Day surgery (SDC) | payer MEDICARE, BC ==
[2025-05-18 13:27] VITALS: BMI 23.8
[~2025-05-19 12:42] MED LIST changes: -LACTATED RINGERS 1,000 ML IV SCH; -LIDOCAINE 1% (10MG/ML) FOR IV START INTRADERMA PRN; -LIDOCAINE 2% INJ 20 MG/ML (2 ML VIAL) ONE; -MIDAZOLAM 2 MG/2 ML VIAL ONE; -ONDANSETRON 4 MG/2 ML VIAL IVP ONE; -ONDANSETRON 4 MG/2 ML VIAL ONE; -PROPOFOL 10 MG/ML 20 ML VIAL IV ONE; +Pre Op ABX Message 1 EACH MISC MISCELLANE ONE; -fentaNYL (PF) 50 MCG/ML 2 ML AMP ONE
[2025-05-19] MEDS: IV FLUID CONTINUATION 1,000 ML IV ONE (13:00)
[2025-05-19 13:33] LABS: Glucose,Whole Blood 81 mg/dL (70-110)
[2025-05-19 13:36] VITALS: TEMP 97.5
[2025-05-19] MEDS: ONDANSETRON 4 MG/2 ML VIAL IVP STA (13:43)
[2025-05-19] MEDS: LACTATED RINGERS 1,000 ML IV SCH (13:43)
[2025-05-19] MEDS: DEXAMETHASONE SOD PHOSPHATE 4 MG/ML 1 ML VIAL IVP STA (13:43)
[2025-05-19] MEDS ORDERED: MIDAZOLAM 2 MG/2 ML VIAL ONE (14:27)
[2025-05-19] MEDS ORDERED: PHENYLEPHRINE-0.9% NACL SYG 1,000 MCG/10 ML SYRINGE ONE (14:27)
[2025-05-19] MEDS ORDERED: fentaNYL (PF) 50 MCG/ML 2 ML AMP ONE (14:27)
[2025-05-19] MEDS ORDERED: SUCCINYLCHOLINE CHLORIDE 200 MG/10 ML VIAL IV ONE (14:27)
[2025-05-19] MEDS ORDERED: LIDOCAINE 1% INJ 10MG/ML (20 ML MDV) ONE (14:27)
[2025-05-19] MEDS ORDERED: PROPOFOL 10 MG/ML 20 ML VIAL IV ONE (14:27)
[2025-05-19] MEDS: SODIUM CHLORIDE 0.9% 100 ML with ceFAZolin 2,000 MG IV ONE (14:40)
--- NOTE | 2025-05-19 15:16 | P.OP ---
Date of Procedure: 05/19/25 Preoperative Diagnosis: 1. Superficial wound breakdown s/p right direct anterior total hip 2. Rheumatoid Arthritis 3. Atrial fibrillation on eliquis Postoperative Diagnosis: Same Procedure(s) Performed: 1. Right hip I&D (excisional debridement non-viable skin and subcu tissue) and revision wound closure 2. Application of negative pressure incisional wound VAC, DME, <50 sq cm, incision 10 cm, right hip Anesthesia: CLIVE Surgeon: Jose Miguel Viramontes Lease Operator #1: Ibrahima Cordero Estimated Blood Loss (ml): 15 Condition: stable Disposition: PACU Indications for Procedure: The patient is a 74 year old female who underwent a right LORENA in March of 2025. She was doing well postoperatively until post op week 3 when she developed an eschar over the middle to distal third of her incision. She was started on local wound care. 1 week later the wound appeared to be healing and the eschar was debrided. She continued to perform local wound care. This weeks she came back and had a small, dime sized superficial open wound over the middle to distal third of her incision. There was no drainage or erythema and the wound appeared superficial. She states that after previous surgery she has had issues with delayed wound healing and MRSA infection. We discussed both continued local woun d care and oral antibiotics versus revision closure in the OR. My recomendation given her history was to perform an exploration of the wound in the OR, revision closure and wound VAC. If the wound tracked deep we discussed a DAIR versus single stage revision. She requested to proceed. Operative Findings: Superficial wound breakdown (dime sized) over the middle to distal third of the incision. There was no sign of deep sinus or deep tracking. The fascia underlying the subcu was completely intact. Description of Procedure: The patient was identified in preop holding. Her right leg was signed. She was brought back to the OR. A general anesthesia was given as well as IV antibiotics. She had boots for the hana table applied. She was carefully transferred onto the [place] table. She was then prepped and draped in the standard sterile fashion. A time out was performed. I began by outlining the prior scar, making an ellipse around the dime sized area of opening. The distal 2/3 of the original incision was incised, ellipsing out the necrotic area. The wound was superficial and did not track deep. All non-viable skin and subcu tissue was sharply debrided with a scalpel. The wound was then thoroughly irrigated and closed in layers. An incisional wound VAC was applied over the closed incision. The patient was carefully transferred off the OR table and brought to the PACU. PLAN: The patient can d/c home today. WBAT right LE. Leave incisional wound VAC in place for 2 weeks. She will need follow-up in 2 weeks for wound check.
[2025-05-19] MEDS: hydrALAZINE HCL 20 MG/ML 1 ML VIAL IVP ONE (16:08)
[2025-05-19 16:46] VITALS: BP 121/83; PULSE 91; RESP 14
== END 2025-05-19 17:00 | disposition home or self-care (01) ==
LOC: OR 12:42
PROVIDERS: ATTEND Orthopaedic Surgery
DX: T81.89XA Other complications of procedures, not elsewhere classified, initial encounter (principal); M06.9 Rheumatoid arthritis, unspecified; I48.91 Unspecified atrial fibrillation; E11.9 Type 2 diabetes mellitus without complications; E07.9 Disorder of thyroid, unspecified; I10 Essential (primary) hypertension; F41.9 Anxiety disorder, unspecified; G47.33 Obstructive sleep apnea (adult) (pediatric); Z96.641 Presence of right artificial hip joint; Z86.14 Personal history of Methicillin resistant Staphylococcus aureus infection; Z79.01 Long term (current) use of anticoagulants; Z79.890 Hormone replacement therapy; Z79.899 Other long term (current) drug therapy
CPT/HCPCS: 13160; J2250; J0330; J0360; J1100; J2405; J0690; J2003; J3010; J2704; J2371